=== PATIENT | female | born 1955 | race Caucasian/White ===

== ENCOUNTER 2024-11-21 13:30 | Observation (INO) | payer MEDICARE, SELFPAY ==
[2024-11-21] VITALS (11 sets, daily range): BP systolic 116–145; BP diastolic 61–97; PULSE 71–106; RESP 14–18; TEMP 36.4–38.2; O2SAT 88–97; BMI 55.7; BMI 49.4
--- NOTE | 2024-11-21 13:46 | XR_ITS ---
PROCEDURE INFORMATION: Exam: XR Pelvis Exam date and time: 11/21/2024 2:02 PM Age: 69 years old Clinical indication: Pelvic pain; Additional info: Right sided hip pain no injury TECHNIQUE: Imaging protocol: Radiologic exam of the pelvis. Views: 1 or 2 view. COMPARISON: No relevant prior studies available. 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 Moderate degenerative changes in the sacroiliac joints. There is no evidence of acute fracture.There is no evidence of malalignment or dislocation. Soft tissues: Unremarkable. IMPRESSION: There is no evidence of acute fracture.There is no evidence of malalignment or dislocation.
--- NOTE | 2024-11-21 13:46 | XR_ITS ---
PROCEDURE INFORMATION: Exam: XR Chest Exam date and time: 11/21/2024 2:02 PM Age: 69 years old Clinical indication: Cough and shortness of breath; Additional info: Cough, SOA TECHNIQUE: Imaging protocol: Radiologic exam of the chest. Views: 1 view. COMPARISON: CR XR CHEST PORTABLE 11/21/2024 2:02 PM FINDINGS: Lungs: Opacity in both bases may represent atelectasis or pneumonia.. Pleural spaces: Unremarkable. No pleural effusion. No pneumothorax. Heart/Mediastinum: Unremarkable. No cardiomegaly. Bones/joints: Unremarkable. IMPRESSION: Opacity in both bases may represent atelectasis or pneumonia..
--- NOTE | 2024-11-21 13:47 | XR_ITS ---
PROCEDURE INFORMATION: Exam: XR Right Shoulder Exam date and time: 11/21/2024 2:02 PM Age: 69 years old Clinical indication: Pain; Shoulder; Right; Additional info: Right shoulder pain TECHNIQUE: Imaging protocol: Radiologic exam of the right shoulder. Views: 2 or more views. COMPARISON: CR XR CHEST PORTABLE 11/21/2024 2:02 PM FINDINGS: Bones/joints: Mild Degenerative changes in the acromioclavicular joint and glenohumeral joint. There is no evidence of acute fracture.There is no evidence of malalignment or dislocation. Soft tissues: Normal. IMPRESSION: There is no evidence of acute fracture.There is no evidence of malalignment or dislocation.
--- NOTE | 2024-11-21 13:52 | ED_ITS ---
<Statement entered by Ana Chavez MD - 11/21/24 15:34> I was consulted by the NAMRATA, and we discussed the complexity of problems being addressed. I approved the treatment and management plan for this patient's care in the emergency department, thus performing a substantive portion of the medical decision making. Ana Chavez MD Discharge Plan Disposition Patient Disposition: Admitted Condition: Good Clinical Impressions Clinical Impression: Colitis, Sepsis Discharge ED Provider: Robert Nagy General Adult HPI <RAMÍREZ Ayala - Last Filed: 11/21/24 17:31> General Chief complaint: Nausea/Vomiting/Diarrhea Stated complaint: soa vomiting diarrhea Time Seen by Provider: 11/21/24 13:40 Mode of Arrival: Ambulatory Source of Information: Patient Limitations: No Limitations History of Present Illness HPI narrative: 69-year-old female presents to the emergency department with a 1 week history of right-sided shoulder pain, right-sided hip pain, a 2 to 3-day history of nausea vomiting diarrhea, as well as productive cough and subjective fever and chills, no recorded Tmax. Patient denies any recent sick contacts, denies any overt chest pain, denies any real shortness of breath, denies any abdominal pain, denies any urinary type symptomatology, denies melena hematochezia, hematemesis, hemoptysis. Patient is somewhat of a poor historian but does endorse a past medical history consistent with double mastectomy for right-sided breast cancer approximately 2 to 3 years ago, hypertension, T2DM, hyperlipidemia, she denies any alcohol tobacco or drug use. Initial triage vitals notable for tachycardia, SpO2 94% on room air, febrile at 100.7, triggering sepsis criteria. Onset (ago): week(s) Related Data Home Medications ?Medication ?Instructions ?Recorded ?Confirmed amlodipine 5 mg tablet 5 mg PO DAILY 11/21/2411/21 anastrozole 1 mg tablet 1 mg PO DAILY 11/21/2411/21 atorvastatin 80 mg tablet 80 mg PO HS 11/21/24 5 benzonatate 200 mg capsule 200 mg PO BID 11/21/2411/07 bupropion HCl 150 mg 24 hr tablet, 150 mg PO DAILY 11/21/24 extended release citalopram 40 mg tablet 40 mg PO DAILY 11/21/2411/07 empagliflozin 10 mg tablet 10 mg PO DAILY 11/21/24 (Jardiance) ezetimibe 10 mg tablet 10 mg PO DAILY 11/21/2411/07 irbesartan 150 mg tablet 150 mg PO DAILY 11/21/24 levocetirizine 5 mg tablet 5 mg PO DAILY 11/21/2411/07 metformin 1,000 mg tablet 1,000 mg PO BID 11/21/24 montelukast 10 mg tablet 10 mg PO DAILY 11/21/2411/07 omega-3 acid ethyl esters 1 gram 1 g PO BID 11/21/24 0 11/21/24 capsule pantoprazole 40 mg tablet,delayed 40 mg PO DAILY 11/2111/21/24 release pioglitazone 30 mg tablet 30 mg PO DAILY 11/21/2411/07 semaglutide 0.25 mg or 0.5 mg (2 1 mg SQ WEEKLY 11/21/24 mg/3 mL) subcutaneous pen injector (Ozempic) Allergies Allergy/AdvReac Type Severity Reaction Status Date / Time lisinopril AdvReac Mild Cough Verified 11/21/24 13:55 [facility] <RAMÍREZ Ayala - Last Filed: 11/21/24 17:31> [facility] Disclaimer: The information contained in this section may have been updated after the patient was seen, as this information can be updated by other users. Medical History (Updated 11/21/24 @ 18:25 by Raegan Rey RN) HX: breast cancer Diabetes type 2 GERD (gastroesophageal reflux disease) HTN (hypertension) HLD (hyperlipidemia) Surgical History (Updated 11/21/24 @ 18:25 by Raegan Rey RN) H/O bilateral mastectomy History of total right knee replacement Family History (Updated 11/21/24 @ 18:26 by Raegan Rey, PAULA) Other Breast cancer Cancer of back Heart attack Social History (Updated 11/21/24 @ 18:25 by Raegan Rey RN) Smoking Status: Never smoker alcohol intake: never current occupational status: other Travel in the last 8 weeks?: None Have you lived/traveled outside [place] in past 30 days?: No Contact w/someone who lives/traveled outside [place] past 30 days?: No Exposure to someone with infectious disease in past 14 days?: No Do you have a fever (greater than 100.4 F or 38 C)?: No Have you tested positive for COVID-19?: No Exposed to someone with COVID-19 in past 14 days?: No Do you have a sore throat?: No Do you have a cough?: No Do you have any weakness?: Yes Are you experiencing any nausea/vomitting?: No Do you have any diarrhea?: No Are you experiencing any unusual bleeding?: No Do you have any muscle aches/pain?: No Do you have any abdominal pain?: No Are you experiencing loss of taste or smell?: No <RAMÍREZ Ayala - Last Filed: 11/21/24 17:31> ROS Obtained: Yes All systems reviewed & no additional complaints except as documented Physical Exam <RAMÍREZ Ayala - Last Filed: 11/21/24 17:31> General General appearance: alert and in no apparent distress Head Head exam: atraumatic and normocephalic Eye Eye exam: Present PERRL and EOMI ENT ENT exam: Present mucous membranes moist Neck Neck exam: Present normal inspection Chest Chest inspection: Present normal inspection and symmetric chest wall rise Respiratory Respiratory exam: Present normal lung sounds bilaterally; Absent respiratory distress, wheezes or stridor Cardiovascular Cardiovascular exam: Present normal rhythm and tachycardia Abdominal Exam Abdominal exam: Present soft; Absent tenderness, guarding, rebound or rigidity Extremities Exam Extremities exam: Present normal inspection Neurological Exam Neurological exam: Present alert and oriented X3 Psychiatric Psychiatric exam: Present normal affect Skin Skin exam: Present warm and dry Medical Decision Making <RAMÍREZ Ayala - Last Filed: 11/21/24 17:31> Medical Records Medical records reviewed: Yes I reviewed the patient's medical records. Screening: Per USPSTF and CDC recommendations, given the prevalence of disease in our region, it is our hospital?s policy to screen for HIV and viral Hepatitis for all patients aged 18 and over and those with ongoing risk factors. Neo Inquiry Pt receiving controlled substance: No Neo was queried for this patient: No Vital Signs: 11/21/24 13:40 11/21/24 13:49 11/21/24 14:00 Temperature 100.7 F H Temperature Source Oral Pulse Rate 106 H 99 H Pulse Rate [Right Radial] 106 H Respiratory Rate 18 Blood Pressure 142/70 H Blood Pressure [Right Arm] 142/70 H Blood Pressure Mean Blood Pressure Mean [Right Arm] 94 Blood Pressure Source Blood Pressure Source [Right Arm] Automatic Cuff Blood Pressure Position Blood Pressure Position [Right Arm] Sitting 02 Sat by Pulse Oximetry 92 L 94 L 91 L Oxygen Delivery Method Room Air Room Air 11/21/24 14:30 11/21/24 15:00 11/21/24 16:00 Temperature Temperature Source Pulse Rate 98 H 84 86 Pulse Rate [Right Radial] Respiratory Rate 18 Blood Pressure 145/77 H 118/61 131/71 Blood Pressure [Right Arm] Blood Pressure Mean 91 Blood Pressure Mean [Right Arm] Blood Pressure Source Blood Pressure Source [Right Arm] Blood Pressure Position Blood Pressure Position [Right Arm] 02 Sat by Pulse Oximetry 93 L 92 L 95 Oxygen Delivery Method Room Air Room Air 11/21/24 17:01 11/21/24 17:19 11/21/24 17:30 Temperature 97.6 F Temperature Source Oral Pulse Rate 88 79 80 Pulse Rate [Right Radial] Respiratory Rate 18 16 Blood Pressure 118/71 118/71 126/97 H Blood Pressure [Right Arm] Blood Pressure Mean 79 Blood Pressure Mean [Right Arm] Blood Pressure Source Automatic Cuff Blood Pressure Source [Right Arm] Blood Pressure Position Supine Blood Pressure Position [Right Arm] 02 Sat by Pulse Oximetry 94 L 91 L Oxygen Delivery Method Room Air Lab Data Lab results reviewed: Yes I reviewed the patient's lab results. Lab Results 11/21/24 13:45: WBC 14.7 H, RBC 4.97, Hgb 13.4, Hct 41.5, MCV 83.5, MCH 27.0, MCHC 32.3, RDW 15.8, Plt Count 291, MPV 9.8, Neut % (Auto) 80.7 H, Lymph % (Auto) 11.5, [place]t % (Auto) 5.8, Eos % (Auto) 1.2, Baso % (Auto) 0.5, Neut # (Auto) 11.8 H, Lymph # (Auto) 1.7, [place]t # (Auto) 0.9, Eos # (Auto) 0.2, Baso # (Auto) 0.1 11/21/24 13:48: SARS-CoV-2 (PCR) Not detected, Influenza A Untype (PCR) Not detected, Influenza Type B (PCR) Not detected 11/21/24 13:57: Lactate 2.7 H 11/21/24 14:45: Sodium 133 L, Potassium 3.5, Chloride 102, Carbon Dioxide 25, Anion Gap 9.5, BUN 12, Creatinine 0.90, Estimated Creat Clear 42, Estimated GFR 62, Est GFR ( Amer) 75, Glucose 223 H, Calcium 9.4, Total Bilirubin 0.5, AST 26, ALT 17, Alkaline Phosphatase 95, Troponin I < 0.01, NT-Pro-B Natriuret Pep 147 H, Total Protein 6.8, Albumin 3.8, Globulin 3.0, Albumin/Globulin Ratio 1.3, Lipase 50 11/21/24 15:20: Urine Color Yellow, Urine Appearance Clear, Urine pH 5.5, Ur Specific Lloyd 1.025, Urine Protein 1+ A, Urine Glucose (UA) Negative, Urine Ketones Negative, Urine Blood 2+ A, Urine Nitrate Negative, Urine Bilirubin Negative, Urine Urobilinogen 0.2, Ur Leukocyte Esterase Negative, Urine RBC Occasional, Urine WBC None, Ur Squamous Epith Cells 3-5, Urine Bacteria 1+ 11/21/24 13:45 11/21/24 14:45 Orders (Tests/Meds): ED MEDICATIONS Discontinued Medications Generic Name Dose Route Start Last Admin Trade Name Freq PRN Reason Stop Dose Admin Sodium Chloride 1,000 mls @ 999 mls/hr 11/21/24 13:48 11/21/24 14:36 Sod Chlor 0.9% 1000ml Bag IV 11/21/24 14:48 999 mls/hr .Q1H1M ONE Administration Ceftriaxone Sodium 1 gm/ 50 mls @ 100 mls/hr 11/21/24 13:48 11/21/24 14:36 Sodium Chloride IV 11/21/24 14:17 100 mls/hr ONCE ONE Administration Iopamidol 85 ml 11/21/24 15:22 11/21/24 15:23 Iopamidol-370 (76%);100ml Bottle IV 11/21/24 15:23 85 ml ONCE ONE Administration Ondansetron HCl 4 mg 11/21/24 14:02 11/21/24 14:36 Ondansetron 4mg/2ml Vial IV 11/21/24 14:03 4 mg ONCE ONE Administration Sodium Chloride 10 ml 11/21/24 15:22 11/21/24 15:23 Sodium Chloride 0.9% 10ml Syr (Rad Only) IV 11/21/24 15:23 10 ml ONCE ONE Administration ORDERS Category Date Time Status CT abdomen pelvis w con Stat Cat Scan 11/21/24 13:56 Completed Pelvis XR 1-2 views [XR pelvis 1-2V] Stat Exams 11/21/24 13:46 Completed XR chest portable Stat Exams 11/21/24 13:46 Completed XR shoulder RT min 2V Stat Exams 11/21/24 13:47 Completed Complete Blood Count Auto Diff Stat Lab 11/21/24 13:45 Completed Comprehensive Metabolic Panel Stat Lab 11/21/24 14:45 Completed Lactic Acid Stat Lab 11/21/24 13:57 Completed Lipase Stat Lab 11/21/24 14:45 Completed NT Pro Brain Natriuretic Pep. Stat Lab 11/21/24 14:45 Completed Rapid PCR Covid and Flu A/B Stat Lab 11/21/24 13:48 Completed Troponin I Q3H Lab 11/21/24 17:00 Ordered Troponin I Q3H Lab 11/21/24 20:00 Ordered Troponin I Stat Lab 11/21/24 14:45 Completed Urinalysis and Microscopic Stat Lab 11/21/24 15:20 Completed Blood Culture Stat Micro 11/21/24 14:19 Received VBG [Venous Blood Gas] Stat RT 11/21/24 13:51 Ordered Medical Decision Narrative: 69-year-old female presents to the emergency department with multiple medical complaints, see HPI for detail past medical history, differential diagnose include not limited to, osteoarthritis, acute bronchitis, sepsis, viral syndrome, acute UTI, colitis, ileitis, pyelonephritis, pneumonia, cardiac arrhythmia, electrolyte disturbance among others. Discussed patient case with attending physician I discussed this patient's case with the attending physician Will obtain basic laboratory studies lactic acid level lipase level proBNP rapid PCR COVID and flu, troponin, urinalysis, pelvic x-ray, shoulder x-ray on the right, chest x-ray, CT abdomen pelvis with contrast, EKG, blood cultures, VBG, patient initially meeting sepsis criteria with fever and tachycardia, will give 1 L IV NS, 4 mg IV Zofran for nausea and start 1 g IV ceftriaxone for sepsis protocol. I along with the attending physician reviewed the patient's EKG, NSR 90 bpm UT interval within normals, QT interval within normal limits there is no STEMI. CBC is notable for mild leukocytosis of 14.7 Rapid PCR COVID and influenza are negative lactic acidosis of 2.7 CMP is notable for mild hyponatremia at 133 proBNP is minimally elevated at 147, troponin within normal limits at less than 0.01 Urinalysis notable 1+ proteinuria, 2+ hematuria, negative nitrites, negative leukocyte esterase. I reviewed the patient's right shoulder x-ray along the corresponding radiologic report there is no evidence of acute fracture no evidence of malalignment or dislocation I reviewed the patient's chest x-ray along with corresponding radiologic report, opacities in both bases may present atelectasis or pneumonia I reviewed the patient's pelvic x-ray along the corresponding radiologic report, no evidence of acute fracture there is no evidence of malalignment or dislocation. I reviewed the patient's CT abdomen pelvis with contrast along with the corresponding radiologic report, there is a low-attenuation bowel wall thickening in the right colon and transverse colon consistent with colitis, differential diagnose include infectious inflammatory etiologies, lobulated liver consistent with cirrhosis, gallstones of the gallbladder, nonspecific L5-4 changes anterior aspect the pelvis, that may be associated with umbilical hernia in this region. Discussed this patient's case with the hospitalist at approximately 4:55 p.m., he is agreement with current mission plan/treatment plan for sepsis in the setting of colitis. Discussed need for admission with the patient and family at the bedside patient and family are in agreement with current treatment plan/discharge admission plan. <Ana Chavez MD - Last Filed: 11/21/24 15:42> Vital Signs: 11/21/24 13:40 11/21/24 13:49 11/21/24 14:00 Temperature 100.7 F H Temperature Source Oral Pulse Rate 106 H 99 H Pulse Rate [Right Radial] 106 H Respiratory Rate 18 Blood Pressure 142/70 H Blood Pressure [Right Arm] 142/70 H Blood Pressure Mean Blood Pressure Mean [Right Arm] 94 Blood Pressure Source Blood Pressure Source [Right Arm] Automatic Cuff Blood Pressure Position Blood Pressure Position [Right Arm] Sitting 02 Sat by Pulse Oximetry 92 L 94 L 91 L Oxygen Delivery Method Room Air Room Air 11/21/24 14:30 11/21/24 15:00 11/21/24 16:00 Temperature Temperature Source Pulse Rate 98 H 84 86 Pulse Rate [Right Radial] Respiratory Rate 18 Blood Pressure 145/77 H 118/61 131/71 Blood Pressure [Right Arm] Blood Pressure Mean 91 Blood Pressure Mean [Right Arm] Blood Pressure Source Blood Pressure Source [Right Arm] Blood Pressure Position Blood Pressure Position [Right Arm] 02 Sat by Pulse Oximetry 93 L 92 L 95 Oxygen Delivery Method Room Air Room Air 11/21/24 17:01 11/21/24 17:19 11/21/24 17:30 Temperature 97.6 F Temperature Source Oral Pulse Rate 88 79 80 Pulse Rate [Right Radial] Respiratory Rate 18 16 Blood Pressure 118/71 118/71 126/97 H Blood Pressure [Right Arm] Blood Pressure Mean 79 Blood Pressure Mean [Right Arm] Blood Pressure Source Automatic Cuff Blood Pressure Source [Right Arm] Blood Pressure Position Supine Blood Pressure Position [Right Arm] 02 Sat by Pulse Oximetry 94 L 91 L Oxygen Delivery Method Room Air Lab Data Lab Results 11/21/24 13:45: WBC 14.7 H, RBC 4.97, Hgb 13.4, Hct 41.5, MCV 83.5, MCH 27.0, MCHC 32.3, RDW 15.8, Plt Count 291, MPV 9.8, Neut % (Auto) 80.7 H, Lymph % (Auto) 11.5, Van Zandt % (Auto) 5.8, Eos % (Auto) 1.2, Baso % (Auto) 0.5, Neut # (Auto) 11.8 H, Lymph # (Auto) 1.7, [place]andt # (Auto) 0.9, Eos # (Auto) 0.2, Baso # (Auto) 0.1 11/21/24 13:48: SARS-CoV-2 (PCR) Not detected, Influenza A Untype (PCR) Not detected, Influenza Type B (PCR) Not detected 11/21/24 13:57: Lactate 2.7 H 11/21/24 14:45: Sodium 133 L, Potassium 3.5, Chloride 102, Carbon Dioxide 25, Anion Gap 9.5, BUN 12, Creatinine 0.90, Estimated Creat Clear 42, Estimated GFR 62, Est GFR ( Amer) 75, Glucose 223 H, Calcium 9.4, Total Bilirubin 0.5, AST 26, ALT 17, Alkaline Phosphatase 95, Troponin I < 0.01, NT-Pro-B Natriuret Pep 147 H, Total Protein 6.8, Albumin 3.8, Globulin 3.0, Albumin/Globulin Ratio 1.3, Lipase 50 11/21/24 15:20: Urine Color Yellow, Urine Appearance Clear, Urine pH 5.5, Ur Specific Lloyd 1.025, Urine Protein 1+ A, Urine Glucose (UA) Negative, Urine Ketones Negative, Urine Blood 2+ A, Urine Nitrate Negative, Urine Bilirubin Negative, Urine Urobilinogen 0.2, Ur Leukocyte Esterase Negative, Urine RBC Occasional, Urine WBC None, Ur Squamous Epith Cells 3-5, Urine Bacteria 1+ Orders (Tests/Meds): ED MEDICATIONS Discontinued Medications Generic Name Dose Route Start Last Admin Trade Name Freq PRN Reason Stop Dose Admin Sodium Chloride 1,000 mls @ 999 mls/hr 11/21/24 13:48 11/21/24 14:36 Sod Chlor 0.9% 1000ml Bag IV 11/21/24 14:48 999 mls/hr .Q1H1M ONE Administration Ceftriaxone Sodium 1 gm/ 50 mls @ 100 mls/hr 11/21/24 13:48 11/21/24 14:36 Sodium Chloride IV 11/21/24 14:17 100 mls/hr ONCE ONE Administration Iopamidol 85 ml 11/21/24 15:22 11/21/24 15:23 Iopamidol-370 (76%);100ml Bottle IV 11/21/24 15:23 85 ml ONCE ONE Administration Ondansetron HCl 4 mg 11/21/24 14:02 11/21/24 14:36 Ondansetron 4mg/2ml Vial IV 11/21/24 14:03 4 mg ONCE ONE Administration Sodium Chloride 10 ml 11/21/24 15:22 11/21/24 15:23 Sodium Chloride 0.9% 10ml Syr (Rad Only) IV 11/21/24 15:23 10 ml ONCE ONE Administration ORDERS Category Date Time Status CT abdomen pelvis w con Stat Cat Scan 11/21/24 13:56 Completed Pelvis XR 1-2 views [XR pelvis 1-2V] Stat Exams 11/21/24 13:46 Completed XR chest portable Stat Exams 11/21/24 13:46 Completed XR shoulder RT min 2V Stat Exams 11/21/24 13:47 Completed Complete Blood Count Auto Diff Stat Lab 11/21/24 13:45 Completed Comprehensive Metabolic Panel Stat Lab 11/21/24 14:45 Completed Lactic Acid Stat Lab 11/21/24 13:57 Completed Lipase Stat Lab 11/21/24 14:45 Completed NT Pro Brain Natriuretic Pep. Stat Lab 11/21/24 14:45 Completed Rapid PCR Covid and Flu A/B Stat Lab 11/21/24 13:48 Completed Troponin I Q3H Lab 11/21/24 17:00 Ordered Troponin I Q3H Lab 11/21/24 20:00 Ordered Troponin I Stat Lab 11/21/24 14:45 Completed Urinalysis and Microscopic Stat Lab 11/21/24 15:20 Completed Blood Culture Stat Micro 11/21/24 14:19 Received VBG [Venous Blood Gas] Stat RT 11/21/24 13:51 Ordered <Robert Nagy MD - Last Filed: 11/21/24 18:32> Vital Signs: 11/21/24 13:40 11/21/24 13:49 11/21/24 14:00 Temperature 100.7 F H Temperature Source Oral Pulse Rate 106 H 99 H Pulse Rate [Right Radial] 106 H Respiratory Rate 18 Blood Pressure 142/70 H Blood Pressure [Right Arm] 142/70 H Blood Pressure Mean Blood Pressure Mean [Right Arm] 94 Blood Pressure Source Blood Pressure Source [Right Arm] Automatic Cuff Blood Pressure Position Blood Pressure Position [Right Arm] Sitting 02 Sat by Pulse Oximetry 92 L 94 L 91 L Oxygen Delivery Method Room Air Room Air 11/21/24 14:30 11/21/24 15:00 11/21/24 16:00 Temperature Temperature Source Pulse Rate 98 H 84 86 Pulse Rate [Right Radial] Respiratory Rate 18 Blood Pressure 145/77 H 118/61 131/71 Blood Pressure [Right Arm] Blood Pressure Mean 91 Blood Pressure Mean [Right Arm] Blood Pressure Source Blood Pressure Source [Right Arm] Blood Pressure Position Blood Pressure Position [Right Arm] 02 Sat by Pulse Oximetry 93 L 92 L 95 Oxygen Delivery Method Room Air Room Air 11/21/24 17:01 11/21/24 17:19 11/21/24 17:30 Temperature 97.6 F Temperature Source Oral Pulse Rate 88 79 80 Pulse Rate [Right Radial] Respiratory Rate 18 16 Blood Pressure 118/71 118/71 126/97 H Blood Pressure [Right Arm] Blood Pressure Mean 79 Blood Pressure Mean [Right Arm] Blood Pressure Source Automatic Cuff Blood Pressure Source [Right Arm] Blood Pressure Position Supine Blood Pressure Position [Right Arm] 02 Sat by Pulse Oximetry 94 L 91 L Oxygen Delivery Method Room Air Lab Data Lab Results 11/21/24 13:45: WBC 14.7 H, RBC 4.97, Hgb 13.4, Hct 41.5, MCV 83.5, MCH 27.0, MCHC 32.3, RDW 15.8, Plt Count 291, MPV 9.8, Neut % (Auto) 80.7 H, Lymph % (Auto) 11.5, [place]andt % (Auto) 5.8, Eos % (Auto) 1.2, Baso % (Auto) 0.5, Neut # (Auto) 11.8 H, Lymph # (Auto) 1.7, [place]t # (Auto) 0.9, Eos # (Auto) 0.2, Baso # (Auto) 0.1 11/21/24 13:48: SARS-CoV-2 (PCR) Not detected, Influenza A Untype (PCR) Not detected, Influenza Type B (PCR) Not detected 11/21/24 13:57: Lactate 2.7 H 11/21/24 14:45: Sodium 133 L, Potassium 3.5, Chloride 102, Carbon Dioxide 25, Anion Gap 9.5, BUN 12, Creatinine 0.90, Estimated Creat Clear 42, Estimated GFR 62, Est GFR ( Amer) 75, Glucose 223 H, Calcium 9.4, Total Bilirubin 0.5, AST 26, ALT 17, Alkaline Phosphatase 95, Troponin I < 0.01, NT-Pro-B Natriuret Pep 147 H, Total Protein 6.8, Albumin 3.8, Globulin 3.0, Albumin/Globulin Ratio 1.3, Lipase 50 11/21/24 15:20: Urine Color Yellow, Urine Appearance Clear, Urine pH 5.5, Ur Specific Lloyd 1.025, Urine Protein 1+ A, Urine Glucose (UA) Negative, Urine Ketones Negative, Urine Blood 2+ A, Urine Nitrate Negative, Urine Bilirubin Negative, Urine Urobilinogen 0.2, Ur Leukocyte Esterase Negative, Urine RBC Occasional, Urine WBC None, Ur Squamous Epith Cells 3-5, Urine Bacteria 1+ Orders (Tests/Meds): ED MEDICATIONS Discontinued Medications Generic Name Dose Route Start Last Admin Trade Name Freq PRN Reason Stop Dose Admin Sodium Chloride 1,000 mls @ 999 mls/hr 11/21/24 13:48 11/21/24 14:36 Sod Chlor 0.9% 1000ml Bag IV 11/21/24 14:48 999 mls/hr .Q1H1M ONE Administration Ceftriaxone Sodium 1 gm/ 50 mls @ 100 mls/hr 11/21/24 13:48 11/21/24 14:36 Sodium Chloride IV 11/21/24 14:17 100 mls/hr ONCE ONE Administration Iopamidol 85 ml 11/21/24 15:22 11/21/24 15:23 Iopamidol-370 (76%);100ml Bottle IV 11/21/24 15:23 85 ml ONCE ONE Administration Ondansetron HCl 4 mg 11/21/24 14:02 11/21/24 14:36 Ondansetron 4mg/2ml Vial IV 11/21/24 14:03 4 mg ONCE ONE Administration Sodium Chloride 10 ml 11/21/24 15:22 11/21/24 15:23 Sodium Chloride 0.9% 10ml Syr (Rad Only) IV 11/21/24 15:23 10 ml ONCE ONE Administration ORDERS Category Date Time Status CT abdomen pelvis w con Stat Cat Scan 11/21/24 13:56 Completed Pelvis XR 1-2 views [XR pelvis 1-2V] Stat Exams 11/21/24 13:46 Completed XR chest portable Stat Exams 11/21/24 13:46 Completed XR shoulder RT min 2V Stat Exams 11/21/24 13:47 Completed Complete Blood Count Auto Diff Stat Lab 11/21/24 13:45 Completed Comprehensive Metabolic Panel Stat Lab 11/21/24 14:45 Completed Lactic Acid Stat Lab 11/21/24 13:57 Completed Lipase Stat Lab 11/21/24 14:45 Completed NT Pro Brain Natriuretic Pep. Stat Lab 11/21/24 14:45 Completed Rapid PCR Covid and Flu A/B Stat Lab 11/21/24 13:48 Completed Troponin I Q3H Lab 11/21/24 17:00 Ordered Troponin I Q3H Lab 11/21/24 20:00 Ordered Troponin I Stat Lab 11/21/24 14:45 Completed Urinalysis and Microscopic Stat Lab 11/21/24 15:20 Completed Blood Culture Stat Micro 11/21/24 14:19 Received VBG [Venous Blood Gas] Stat RT 11/21/24 13:51 Ordered Medical Decision Narrative: 69-year-old female presents to the emergency department with multiple medical complaints, see HPI for detail past medical history, differential diagnose include not limited to, osteoarthritis, acute bronchitis, sepsis, viral syndrome, acute UTI, colitis, ileitis, pyelonephritis, pneumonia, cardiac arrhythmia, electrolyte disturbance among others. Discussed patient case with attending physician I discussed this patient's case with the attending physician Will obtain basic laboratory studies lactic acid level lipase level proBNP rapid PCR COVID and flu, troponin, urinalysis, pelvic x-ray, shoulder x-ray on the right, chest x-ray, CT abdomen pelvis with contrast, EKG, blood cultures, VBG, patient initially meeting sepsis criteria with fever and tachycardia, will give 1 L IV NS, 4 mg IV Zofran for nausea and start 1 g IV ceftriaxone for sepsis protocol. I along with the attending physician reviewed the patient's EKG, NSR 90 bpm UT interval within normals, QT interval within normal limits there is no STEMI. CBC is notable for mild leukocytosis of 14.7 Rapid PCR COVID and influenza are negative lactic acidosis of 2.7 CMP is notable for mild hyponatremia at 133 proBNP is minimally elevated at 147, troponin within normal limits at less than 0.01 Urinalysis notable 1+ proteinuria, 2+ hematuria, negative nitrites, negative leukocyte esterase. I reviewed the patient's right shoulder x-ray along the corresponding radiologic report there is no evidence of acute fracture no evidence of malalignment or dislocation I reviewed the patient's chest x-ray along with corresponding radiologic report, opacities in both bases may present atelectasis or pneumonia I reviewed the patient's pelvic x-ray along the corresponding radiologic report, no evidence of acute fracture there is no evidence of malalignment or dislocation. I reviewed the patient's CT abdomen pelvis with contrast along with the corresponding radiologic report, there is a low-attenuation bowel wall thickening in the right colon and transverse colon consistent with colitis, differential diagnose include infectious inflammatory etiologies, lobulated liver consistent with cirrhosis, gallstones of the gallbladder, nonspecific L5-4 changes anterior aspect the pelvis, that may be associated with umbilical hernia in this region. Discussed this patient's case with the hospitalist at approximately 4:55 p.m., he is agreement with current mission plan/treatment plan for sepsis in the setting of colitis. Discussed need for admission with the patient and family at the bedside patient and family are in agreement with current treatment plan/discharge admission plan. I was consulted by the NAMRATA, and we discussed the complexity of the problems being addressed. I approved the treatment and management plan for this patient's care in the Emergency Department, thus performing a substantive portion of the medical decision making. Robert Nagy MD Procedures <Robert Nagy MD - Last Filed: 11/21/24 18:32> Limited Ultrasound Indication:: Ultrasound-guided line placement Indication: - Difficult IV access, numerous unsuccessful initial sticks Identified structures: - Right upper extremity veins Location/access site: - Right upper extremity superficial vein Vessel patency: - Patent Direct visualization? - Yes Impression: Successful placement of 18-gauge catheter in right upper extremity superficial medial vein Images were not saved to permanent archive The study was technically adequate CPT Codes: Venipuncture: 18561-35 Age <3 yo: 35791-34 Age >3yo: 72995-46 Central line <5 yo: 97168-56 Central line >5 yo: 89137-04 This study was performed by me, and I personally interpreted all images/videos. Based on my clinical judgement, these images were adequate and did not necessitate further imaging Critical Care <Ana Chavez MD - Last Filed: 11/21/24 15:42> Critical Care Time Critical Care Time: No
[2024-11-21 13:54] LABS: Coronavirus 19, PCR Not Detected (NotDetected); Influenza A, PCR Not Detected (NotDetected); Influenza B, PCR Not Detected (NotDetected)
--- NOTE | 2024-11-21 13:56 | CT_ITS ---
PROCEDURE INFORMATION: Exam: CT Abdomen And Pelvis With Contrast Exam date and time: 11/21/2024 3:22 PM Age: 69 years old Clinical indication: Nausea and vomiting; Additional info: N/v/d, positive sirs criteria TECHNIQUE: Imaging protocol: Computed tomography of the abdomen and pelvis with contrast. Radiation optimization: All CT scans at this facility use at least one of these dose optimization techniques: automated exposure control; mA and/or kV adjustment per patient size (includes targeted exams where dose is matched to clinical indication); or iterative reconstruction. Contrast material: ISOVUE; Contrast volume: 85 ml; Contrast route: IV; COMPARISON: CR XR PELVIS 1-2V 11/21/2024 2:02 PM FINDINGS: Heart: A small pericardial effusion. There is calcification of the aortic valve annulus. There is calcification of the mitral valve annulus. Coronary arteries: Coronary artery calcifications may indicate coronary artery disease. Liver: Lobulated liver consistent with cirrhosis . Gallbladder and biliary ducts: Gallstone in the gallbladder . Pancreas: Normal. No ductal dilation. Spleen: Normal. No splenomegaly. Adrenal glands: Normal. No mass. Kidneys and ureters: 11 mm simple cyst anterior right kidney. 2.6 cm simple cyst posterior right kidney. 15 mm simple cyst medial right kidney. . No follow-up imaging recommended . There is no evidence of renal or ureteral calcifications. Stomach and bowel: Low-attenuation bowel wall thickening in the right colon and transverse colon consistent with colitis. Differential diagnosis includes infectious and inflammatory etiologies.. Appendix: No evidence of appendicitis. Intraperitoneal space: Unremarkable. No free air. No significant fluid collection. Vasculature: Unremarkable. No abdominal aortic aneurysm. Lymph nodes: Unremarkable. No enlarged lymph nodes. Urinary bladder: Unremarkable as visualized. Reproductive: Unremarkable as visualized. Bones/joints: Unremarkable. No acute fracture. Soft tissues: Umbilical hernia contains fat. Nonspecific inflammatory changes in the anterior aspect of the pelvis. (series 3, image [id number]). That may be associated with the umbilical hernia in this region. IMPRESSION: 1. Low-attenuation bowel wall thickening in the right colon and transverse colon consistent with colitis. Differential diagnosis includes infectious and inflammatory etiologies.. 2. Lobulated liver consistent with cirrhosis . 3. Gallstone in the gallbladder . 4. Nonspecific inflammatory changes in the anterior aspect of the pelvis. (series 3, image [id number] -[id number]). That may be associated with the umbilical hernia in this region. COMMENTS: Consistent with the [employer]'s Incidental Findings Committee white paper (J Am Sarah Radiol 2018): Any incidental renal lesion less than 1 cm or classified as too small to characterize, or any incidental cystic renal lesion characterized as simple-appearing, is likely benign. No follow-up imaging is recommended for these lesions per consensus recommendations based on imaging criteria.
--- NOTE | 2024-11-21 13:56 | PC.NURSE ---
Respiratory notified [facility] sent to lab
[2024-11-21 13:57] LABS: Basophils # 0.1 K/mm3 (0-0.2); Basophils % 0.5 % (0.1-2.0); Eosinophils # 0.2 Kmm3 (0.0-0.4); Eosinophils % 1.2 % (0.1-12.0); Hematocrit 41.5 % (37.0-47.0); Hemoglobin 13.4 g/dL (12.2-16.2); Immature Granulocytes # 0.05 10^3uL; Immature Granulocytes % 0.3 %; Lymphocytes # 1.7 K/mm3 (0.7-4.5); Lymphocytes % 11.5 % (10-50); Mean Corpuscular HGB Conc 32.3 g/dL (31.8-35.4); Mean Corpuscular Volume 83.5 fl (81-99); Mean Platelet Volume 9.8 fl (7.4-10.4); Monocytes # 0.9 K/mm3 (0.1-1.0); Monocytes % 5.8 % (1.7-9.3); Neutrophils # 11.8 K/mm3 (1.8-7.8); Neutrophils % 80.7 % (37.0-80.0); Nucleated Red Blood Cells # 0 10^3/uL; Nucleated Red Blood Cells % 0 %; Platelet Count 291 K/mm3 (142-424); Red Blood Count 4.97 M/mm3 (4.20-5.40); Red Cell Distribution Width 15.8 % (11.5-17.5); Red Cell Distribution Width-SD 47.8 fL; White Blood Count 14.7 K/mm3 (4.8-10.8)
--- OUTSIDE RECORDS SUMMARY | 2024-11-21 13:58 | XMS_ITS | Data Portability ---
Author Organization [facility] Address [address] [place] [address] Care Team Providers Care Handle And Vent Machine Operator Name Role Phone MIRIAM ZUNIGA Primary Care Provider SUSI Bassett Generating Station Mechanic Assessment Encounter Date Assessment Date Assessment LastModified by Organization Details LastModified Time 01/23/2023 01/23/2023 Patient presente d to office today for their Medicare Annual Wellness Visit. Education was provided on healthy nutrition, including a diet rich in fruits and vegetables, minimizing simple carbohydrates, salt, and saturated fats. Encouraged regular cardiovascular exercise such as walking at least 30 minutes daily, 5 times per week. Emphasized preventive health measures and educated pt on fall prevention and community-based lifestyle interventions to help reduce health risks and promote healthy living. A1C is elevated on exam. She is unsure what her last reading was. Discussed medications and the need to strictly take as prescribed. She does not want to change medications at this time but assures me she will take her medication daily and re-check in one month. Has not had routine labs in a couple of years. Will complete as noted. Does not want to schedule a colonoscopy at this time but agrees to cologuard. She does not need refills at this time but will call when those are due. Advised to call or return for any new or changing symptoms. [email or web address] Not available 01/23/2023 15:46:09 02/27/2023 02/27/2023 Patient given results of cologuard which was positive. Recommended that patient have a colonoscopy and she agreed. Will refer as noted. A1C shows that her diabetes management is improving. Will not make changes to medications at this time. Will order diagnositic mammogram for further evaluation of left breast lump. Will follow-up with patient when results are received. Advised to call or return for any new or changing symptoms. [email or web address] Not available 02/27/2023 14:05:46 05/29/2023 05/29/2023 Advised patient of continually elevated A1C and need to improve medication regimen. She states over the past week that she has improved and will focus on continuing to take her medication daily. Educated patient on potential side effects and outcomes of non-compliance with her medications. Will treat eczema as noted. Patient has negative POC testing at this time. Advised patient to treat symptomatically with [id number] Tylenol or Motrin and to utilize Mucinex if the congestion and cough continues. Instructed to increase fluids and return for further testing in 3 to 5 days if symptoms worsen or do not resolve. [email or web address] Not available 05/29/2023 13:51:40 02/19/2024 02/19/2024 Labs as outlined in plan. DEXA scan ordered. Colonoscopy ordered. Continue current medication regimen. If knee pain continues, call back, might consider PT or referral to [facility]. [facility]. Patient to discuss shingrix, pneumonia vaccine and flu vaccine with oncologist and let me know if she would like to proceed with these vaccinations. Follow up in 3 months for medicare wellness visit, sooner if needed. Needs urine microalbumin and POC A1C at follow up. Not available 02/19/2024 16:35:40 08/16/2024 08/16/2024 Persistent cough - If chest xr normal, will treat with cough medication. If no improvement in a few weeks, will consider PFT's. Diabetes uncontrolled @ 9.7%. Stop Januvia. Start Ozempic. Continue metformin, pioglitazone. Labs per plan below. Keep appt with oncology next month. Restart medications. BP is above goal, but patient is out of one of her medications today and has been inconsistent. Education regarding compliance to medical regimen provided. Encouraged compliance for overall health. Follow up in 3 months to recheck diabetes and for Medicare wellness visit. Not available 08/20/2024 08:35:13 Plan of Treatment Reminders Order Date Submit Date Provider Last Modified By Organization Details Last Modified Time Details Appointments None recorded. Lab lipid panel, serum 2024 025 [facility] [address] [place], [address], 5 07:08:17 CMP, serum or plasma 2024 025 [facility] ([place]), [address] [place], [address], 5 07:08:17 CBC w/ auto diff 2024 025 [facility] [address] [place], [address], 5 07:08:16 vitamin D, 25-hydroxy, total, serum 2024 025 [facility] ([place]), [address] [place], [address], 5 07:08:18 HbA1c (hemoglobin A1c), blood [address], [address], 5 14:24:22 microalbumi n/creatinin e, mass ratio, urine [address], [address], 5 14:24:21 Hepatitis C IgG Ab, qual, serum 2024 025 [facility] ([place]), [address] [place], [address], 5 07:08:18 lipid panel, serum 2023 024 [facility]), [address] [place] [address], [address], 4 12:13:57 CMP, serum or plasma 2023 024 [facility] ([place]), [address] [facility], [place], [address], 4 12:13:56 CBC w/ auto diff 2023 024 [facility] ([place]), [address] [facility], [place], [address], 4 12:13:56 vitamin D, 25-hydroxy, total, serum 2023 024 [facility] ([place]), [address] [facility], [place], [address], 4 12:13:57 HbA1c (hemoglobin A1c), blood [address], [address], 4 16:18:27 rapid SARS CoV 2 Ag, QL, IA, upper respiratory specimen [address], [address], 3 13:49:07 rapid flu (A+B) [address], [address], 3 13:49:11 HbA1c (hemoglobin A1c), blood [address], [address], 3 13:41:50 HbA1c (hemoglobin A1c), blood [address], [place], [address], 3 13:51:15 lipid panel, serum 2022 023 [facility], [address], [place], [address], 3 05:36:06 CMP, serum or plasma 2022 023 [facility], [address], [place], [address], 3 05:36:07 CBC w/ auto diff 2022 023 [facility], [address], [place], [address], 3 05:36:07 vitamin D, 25-hydroxy, total, serum 2022 023 [facility], [address], [place], [address], 3 05:36:08 noninvasive colorectal cancer DNA + occult blood screening, QL, stool 2022 023 [facility] ([facility] Orders Only), [address], [address], [place], [address], 3 07:21:23 TSH, serum or plasma 2022 023 [facility], [address], [place], [address], 3 05:36:08 HbA1c (hemoglobin A1c), blood [address], [address] [place] [address], [address], 3 15:28:40 Referral None recorded. Procedures colonoscopy screening (PROC) - + cologuard last year 2023 024 teresa Garrison MD, [address], [place], [address], 4 15:47:17 colonoscopy screening (PROC) 2022 023 teresa Garrison MD, [address], [place], [address], 4 14:52:02 Surgeries None recorded. Imaging XR, chest, 2 view 2024 025 [facility], [address] [place] [address], [address], 5 16:18:55 DEXA [address] [facility], [address], [place], [address], 4 15:45:57 MAMMO, diagnostic, unilateral - Left breast lump [address] [facility], [address], [place], [address], 3 08:51:53 bone density - first available [address] [facility], [address], [place], [address], 3 14:09:39 Medication Orders atorvastati n 80 mg tablet 2024 025 [facility], [address] [place] [address], [address], 5 13:35:49 Zetia 10 mg tablet 2024 025 [facility], [address] [place] [address], [address], 13:35:50 Lovaza 1 gram capsule 2024 025 [facility], [address] [place] [address], [address], 13:35:46 Zetia 10 mg tablet 2024 025 [facility], [address] [place] [address], [address], 14:58:37 levocetiriz ine 5 mg tablet 2024 025 [facility], [address] [place] [address], [address], 13:35:51 montelukast 10 mg tablet 2024 025 [facility], [address] [place] [address], [address], 13:35:48 amlodipine 5 mg tablet 2024 025 [facility], [address] [place] [address], [address], 13:35:39 irbesartan 150 mg tablet 2024 025 [facility], [address] [place] [address], [address], 13:35:40 benzonatate 200 mg capsule 2024 025 [facility], [address] [place] [address], [address], 13:35:44 bupropion HCl XL 150 mg 24 hr tablet, extended release 2024 025 [facility], [address] [place] [address], [address], 5 13:35:52 pantoprazol e 40 mg tablet,kalyani yed release 2024 025 [facility], [address] [place] [address], [address], 5 13:35:42 metformin 1,000 mg tablet 2024 025 [facility], [address] [place] [address], [address], 5 13:35:47 pioglitazon e 30 mg tablet 2024 025 [facility], [address] [place] [address], [address], 5 13:35:45 Ozempic 0.25 mg or 0.5 mg (2 mg/1.5 mL) subcutaneou s pen injector 2024 025 [facility], [address] [place] [address], [address], 5 13:35:41 citalopram 40 mg tablet 2024 025 [facility], [address] [place] [address], [address], 5 13:35:45 levocetiriz ine 5 mg tablet 2023 024 [facility], [address] [place] [address], [address], 5 15:40:38 montelukast 10 mg tablet 2023 024 [facility], [address] [place] [address], [address], 4 12:22:56 lovastatin 40 mg tablet 2023 024 [facility], [address] [place] [address], [address], 4 09:14:37 amlodipine 5 mg tablet 2023 024 [facility], [address] [place] [address], [address], 4 12:22:58 irbesartan 150 mg tablet 2023 024 [facility], [address] [place] [address], [address], 4 11:06:08 bupropion HCl XL 150 mg 24 hr tablet, extended release 2023 [facility], [address] [place] [address], [address], 4 11:01:13 pantoprazol e 40 mg tablet,kalyani yed release 2023 024 [facility], [address] [place] [address], [address], 4 09:14:34 Januvia 100 mg tablet 2023 025 [facility], [address] [place] [address], [address], 5 14:45:59 metformin 1,000 mg tablet 2023 024 [facility], [address] [place] [address], [address], 4 11:06:10 pioglitazon e 30 mg tablet 2023 024 [facility], [address] [place] [address], [address], 4 11:06:09 citalopram 40 mg tablet 2023 024 [facility], [address] [place] [address], [address], 4 12:22:55 triamcinolo ne acetonide 0.1 % topical cream 2022 024 [facility], [address] [place] [address], [address], 4 16:24:52 irbesartan 150 mg tablet 2022 023 [facility], [address] [place] [address], [address], 4 13:25:32 pioglitazon e 30 mg tablet 2022 023 [facility], [address] [place] [address], [address], 4 13:25:31 Patient TargetsNo targets recorded. Patient Instructions Encounter Date Encounter Id Patient Instructions Last Modified By Organization Details Last Modified Time 01/23/2023 [id number] weight managemen t education Not available 01/23/2023 15:28:40 02/19/2024 [id number] body mass index: care instructions Not available 02/19/2024 16:35:55 learning about healthy weight Not available 02/19/2024 16:35:56 08/16/2024 [id number] type 2 diabetes: care instructions Not available 08/16/2024 14:24:21 Reason for Referral None Reported. Results Created Date Observation Date Name Description Value Unit Range Abnormal Flag Note LastModifiedBy Organization Detail LastModifiedTime 01/24/20 23 01/24/2023 LIPID PANEL WITH REFLE X TO DIREC T LDL cholesterol, total 282 mg/dL <200 high Not Available [facility] [place] [address] [facility], [place], [address], 01/24/2023 05:36:06 01/24/20 23 01/24/2023 LIPID PANEL WITH REFLE X TO DIREC T LDL HDL cholesterol 58 mg/dL > or = 50 normal Not Available [facility] [address] [facility] [place], [address], 01/24/2023 05:36:06 01/24/20 23 01/24/2023 LIPID PANEL WITH REFLE X TO DIREC T LDL triglyceride s 239 mg/dL <150 high If a non-f astin g speci men was colle cted, consi jose luis repea t trigl yceri de testi ng on a fasti ng speci men if clini katy indic ated. Behzad mitchell et al. J. of Clin. Lipid ol. 2015; 9:129 -169. Not Available [facility] [place] [facility] [address] [facility], [place], [address], 01/24/2023 05:36:06 01/24/20 23 01/24/2023 LIPID PANEL WITH REFLE X TO DIREC T LDL LDL-choleste rol 180 mg/dL _(jesus c) high Refer ence range : <100 Felipe able range <100 mg/dL for prima ry preve ntion ; <70 mg/dL for patie nts with CHD or diabe tic patie nts with > or = 2 CHD risk facto rs. LDL-C is now calcu lated using the Lizeth n-Hop kins calcu melissa n, which is a valid ated novel metho d provi ding tin r accur acy than the Fried diana equat ion in the estim ation of LDL-C . Lizeth barrios SS et al. JENNIE. 2013; 310(1 9): 2061- 2068 (http ://ed milenaati on.Qu Clarissa Savveo. com/f aq/FA Q164) Not Available [facility] [address] [facility], [place], [address], 01/24/2023 05:36:06 01/24/20 23 01/24/2023 LIPID PANEL WITH REFLE X TO DIREC T LDL chol/HDLC ratio 4.9 (calc ) <5.0 normal Not Available [facility] [address] [place], [address], 01/24/2023 05:36:06 01/24/20 23 01/24/2023 LIPID PANEL WITH REFLE X TO DIREC T LDL non HDL cholesterol 224 mg/dL _(jesus c) <130 high Non-H DL level > or = 220 is very high and may indic ate [facility] famil ial hyper darron stero lemia (FH). Clini jesus asses sment and measu remen t of blood lipid level s shoul d be consi dered for all first -degr ee relat sarai of patie nts with an FH diagn osis. For patie nts with diabe michelle plus 1 major ASCVD risk facto r, treat ing to a non-H DL-C goal of <100 mg/dL (LDL- C of <70 mg/dL ) is consi dered a thera peuti c optio n. Not Available [facility] [address] [place], [address], 01/24/2023 05:36:06 01/24/20 23 01/24/2023 COMPR EHENS TONE METAB OLIC PANEL glucose 289 mg/dL 65-139 high Non-f astin g refer ence inter japser Not Available [facility] [address] [place], [address], 01/24/2023 05:36:07 01/24/20 23 01/24/2023 COMPR EHENS TONE METAB OLIC PANEL urea nitrogen (BUN) 17 mg/dL 7-25 normal Not Available [facility] [address] [place], [address], 01/24/2023 05:36:07 01/24/20 23 01/24/2023 COMPR EHENS TONE METAB OLIC PANEL creatinine 1.02 mg/dL 0.50-1 .05 normal Not Available [facility] [address] [place], [address], 01/24/2023 05:36:07 01/24/20 23 01/24/2023 COMPR EHENS TONE METAB OLIC PANEL eGFR 60 mL/mi n/1.7 3m2 > or = 60 normal Not Available [facility] [facility] [address] [facility] [place], [address], 01/24/2023 05:36:07 01/24/20 23 01/24/2023 COMPR EHENS TONE METAB OLIC PANEL BUN/creatini ne ratio SEE NOTE: (calc ) 6-22 Not Repor tyrel: BUN and Creat inine are withi n refer ence range . Not Available [employer] [facility] [address] [place], [address], 01/24/2023 05:36:07 01/24/20 23 01/24/2023 COMPR EHENS TONE METAB OLIC PANEL sodium 139 mmol/ L 135-14 6 normal Not Available [facility] [facility] [address] [facility] [place], [address], 01/24/2023 05:36:07 01/24/20 23 01/24/2023 COMPR EHENS TONE METAB OLIC PANEL potassium 4.2 mmol/ L 3.5-5. 3 normal Not Available [facility] [facility] [address] [facility] [place], [address], 01/24/2023 05:36:07 01/24/20 23 01/24/2023 COMPR EHENS TONE METAB OLIC PANEL chloride 97 mmol/ L 98-110 low Not Available [facility] [address] [facility] [place], [address], 01/24/2023 05:36:07 01/24/20 23 01/24/2023 COMPR EHENS TONE METAB OLIC PANEL carbon dioxide 29 mmol/ L 20-32 normal Not Available [facility] [address] [place], [address], 01/24/2023 05:36:07 01/24/20 23 01/24/2023 COMPR EHENS TONE METAB OLIC PANEL calcium 10.0 mg/dL 8.6-10 .4 normal Not Available [facility] [address] [facility] [place], [address], 01/24/2023 05:36:07 01/24/20 23 01/24/2023 COMPR EHENS TONE METAB OLIC PANEL protein, total 7.7 g/dL 6.1-8. 1 normal Not Available [facility] [address] [facility] [place] [place], [address], 01/24/2023 05:36:07 01/24/20 23 01/24/2023 COMPR EHENS TONE METAB OLIC PANEL albumin 4.2 g/dL 3.6-5. 1 normal Not Available [facility] [address] [facility] [place], [address], 01/24/2023 05:36:07 01/24/20 23 01/24/2023 COMPR EHENS TONE METAB OLIC PANEL globulin 3.5 g/dL_ (calc ) 1.9-3. 7 normal Not Available [facility] [address] [facility] [place], [address], 01/24/2023 05:36:07 01/24/20 23 01/24/2023 COMPR EHENS TONE METAB OLIC PANEL albumin/glob ulin ratio 1.2 (calc ) 1.0-2. 5 normal Not Available [facility] [address] [place], [address], 01/24/2023 05:36:07 01/24/20 23 01/24/2023 COMPR EHENS TONE METAB OLIC PANEL bilirubin, total 0.5 mg/dL 0.2-1. 2 normal Not Available [facility] [address] [place], [address], 01/24/2023 05:36:07 01/24/20 23 01/24/2023 COMPR EHENS TONE METAB OLIC PANEL alkaline phosphatase 96 U/L 37-153 normal Not Available [facility] [address] [place], [address], 01/24/2023 05:36:07 01/24/20 23 01/24/2023 COMPR EHENS TONE METAB OLIC PANEL AST 11 U/L 10-35 normal Not Available [facility] [employer] [facility] [address] [place], [address], 01/24/2023 05:36:07 01/24/20 23 01/24/2023 COMPR EHENS TONE METAB OLIC PANEL ALT 10 U/L 6-29 normal Not Available [facility] [facility] [address] [place], [address], 01/24/2023 05:36:07 01/24/20 23 01/24/2023 CBC (INCL UDES DIFF/ PLT) white blood cell count 15.6 thous and/u L 3.8-10 .8 high Not Available [employer] [facility] [address] [place], [address], 01/24/2023 05:47:08 01/24/20 23 01/24/2023 CBC (INCL UDES DIFF/ PLT) red blood cell count 5.00 lencho on/uL 3.80-5 .10 normal Not Available [facility] [facility] [address] [place], [address], 01/24/2023 05:47:08 01/24/20 23 01/24/2023 CBC (INCL UDES DIFF/ PLT) hemoglobin 13.9 g/dL 11.7-1 5.5 normal Not Available [facility] [facility] [address], [place], [address], 01/24/2023 05:47:08 01/24/20 23 01/24/2023 CBC (INCL UDES DIFF/ PLT) hematocrit 42.7 % 35.0-4 5.0 normal Not Available [facility] [place] [address] [place], [address], 01/24/2023 05:47:08 01/24/20 23 01/24/2023 CBC (INCL UDES DIFF/ PLT) MCV 85.4 fL 80.0-1 00.0 normal Not Available [facility] [place] [facility] [address] [place], [address], 01/24/2023 05:47:08 01/24/20 23 01/24/2023 CBC (INCL UDES DIFF/ PLT) MCH 27.8 pg 27.0-3 3.0 normal Not Available [facility] [place] [facility] [address] [place], [address], 01/24/2023 05:47:08 01/24/20 23 01/24/2023 CBC (INCL UDES DIFF/ PLT) MCHC 32.6 g/dL 32.0-3 6.0 normal Not Available [facility] [address] [place], [address], 01/24/2023 05:47:08 01/24/20 23 01/24/2023 CBC (INCL UDES DIFF/ PLT) RDW 14.4 % 11.0-1 5.0 normal Not Available [facility] [address] [place], [address], 01/24/2023 05:47:08 01/24/20 23 01/24/2023 CBC (INCL UDES DIFF/ PLT) platelet count 399 thous and/u L 140-40 0 normal Not Available [facility] [place] [facility] [address] [place], [address], 01/24/2023 05:47:08 01/24/20 23 01/24/2023 CBC (INCL UDES DIFF/ PLT) MPV 9.6 fL 7.5-12 .5 normal Not Available [facility] [place] [facility] [address], [place], [address], 01/24/2023 05:47:08 01/24/20 23 01/24/2023 CBC (INCL UDES DIFF/ PLT) absolute neutrophils 78448 cells /uL 1500-7 800 high Not Available [facility] [place] [facility] [address], [place], [address], 01/24/2023 05:47:08 01/24/20 23 01/24/2023 CBC (INCL UDES DIFF/ PLT) absolute lymphocytes 3479 cells /uL 850-39 00 normal Not Available [facility] [place] [facility] [address], [place], [address], 01/24/2023 05:47:08 01/24/20 23 01/24/2023 CBC (INCL UDES DIFF/ PLT) absolute monocytes 936 cells /uL 200-95 0 normal Not Available [facility] [place] [facility] [address], [place], [address], 01/24/2023 05:47:08 01/24/20 23 01/24/2023 CBC (INCL UDES DIFF/ PLT) absolute eosinophils 265 cells /uL 15-500 normal Not Available [facility] [place] [facility] [address], [place], [address], 01/24/2023 05:47:08 01/24/20 23 01/24/2023 CBC (INCL UDES DIFF/ PLT) absolute basophils 94 cells /uL 0-200 normal Not Available [facility] [place] [facility] [address], [place], [address], 01/24/2023 05:47:08 08/17/01/24/2023 CBC (INCL UDES DIFF/ PLT) neutrophils 69.4 % normal Not Available [facility] [place] [facility] [address] [place], [address], 01/24/2023 05:47:08 01/24/20 23 01/24/2023 CBC (INCL UDES DIFF/ PLT) lymphocytes 22.3 % normal Not Available [facility] [place] [facility] [address] [place], [address], 01/24/2023 05:47:08 01/24/20 23 01/24/2023 CBC (INCL UDES DIFF/ PLT) monocytes 6.0 % normal Not Available [facility] [place] [facility] [address] [place], [address], 01/24/2023 05:47:08 01/24/20 23 01/24/2023 CBC (INCL UDES DIFF/ PLT) eosinophils 1.7 % normal Not Available [facility] [place] [facility] [address] [place], [address], 01/24/2023 05:47:08 01/24/2001/24/2023 CBC (INCL UDES DIFF/ PLT) basophils 0.6 % normal Not Available [facility] [place] [facility] [address] [place], [address], 01/24/2023 05:47:08 01/24/2001/24/2023 TSH W/REF CHRISTIANO TO FT4 TSH w/reflex to FT4 1.83 mIU/L 0.40-4 .50 normal Not Available [facility] [place] [facility] [address] [place], [address], 01/24/2023 07:33:31 01/24/2001/24/2023 VITAM IN D,25- OH,TO JOSE,I A vitamin D,25-oh,tota l,ia 46 NG/mL 30-100 normal Vitam in D Statu s 25-OH Vitam in D: Defic iency : <20 ng/mL Insuf ficie ncy: 20 - 29 ng/mL Optim al: > or = 30 ng/mL For 25-OH Vitam in D testi ng on patie nts on D2-jamison pplem entat ion and patie nts for whom quant itati on of D2 and D3 fract ions is requi red, the [facility] e[facility](TM ) 25-OH VIT D, (D2,D 3), LC/MS /MS is recom nathan d: order code 94896 (abbey ents >2yrs ). See Note 1 Note 1 For addit ional infor lionel barrett e refer to http: //[facility] shazia Plata stDia gnost ics.c om/fa q/FAQ 199 (This link is being provi ded for infor brooklyn healy/ educgale epperson purpo ses only. ) Not Available [facility] [place] [facility] [address] [place] [address], [place], [address], 01/24/2023 07:33:31 01/24/20 23 01/23/2023 HbA1c (hemo globi n A1c), blood HbA1c 11.9 Not Available [address], [address], 01/23/2023 14:49:32 02/19/20 23 02/18/2023 nonin vasiv e color ectal cance r DNA + occul t blood scree alvarado, QL, stool fit-DNA positi ve Not Available [employer] (Cologuard Orders Only) [address] [address], [place], [address], 02/27/2023 06:14:13 02/28/20 23 02/27/2023 HbA1c (hemo globi n A1c), blood HbA1c 10.2 Not Available [address], [address], 02/27/2023 13:44:29 05/29/20 23 05/29/2023 rapid flu (A+B) Flu A negati ve Not Available [address], [address], 05/29/2023 13:07:36 05/29/20 23 05/29/2023 rapid flu (A+B) Flu B negati ve Not Available [address], [address], 05/29/2023 13:07:36 05/29/20 23 05/29/2023 rapid SARS CoV 2 Ag, QL, IA, upper respi rator y speci men SARS CoV Ag negati ve Not Available [address], [address], 05/29/2023 13:07:28 05/29/20 23 05/29/2023 HbA1c (hemo globi n A1c), blood HbA1c 10.8 Not Available [address], [address], 05/29/2023 13:07:00 02/19/20 24 02/21/2024 CBC WITH DIFFE RENTI AL/PL ATELE T WBC 12.8 x10e3 /uL 3.4-10 .8 above high normal Not Available [facility] ([facility]) [address] [facility], [place], [address], 02/21/2024 12:13:56 02/19/20 24 02/21/2024 CBC WITH DIFFE RENTI AL/PL ATELE T RBC 4.75 x10e6 /uL 3.77-5 .28 normal Not Available [facility] ([facility]) [address] [facility], [place], [address], 02/21/2024 12:13:56 02/19/20 24 02/21/2024 CBC WITH DIFFE RENTI AL/PL ATELE T hemoglobin 12.3 g/dL 11.1-1 5.9 normal Not Available [facility] ([facility]) [address] [place], [address], 02/21/2024 12:13:56 02/19/2002/21/2024 CBC WITH DIFFE RENTI AL/PL ATELE T hematocrit 39.4 % 34.0-4 6.6 normal Not Available [facility] ([facility]) [address] [facility], [place], [address], 02/21/2024 12:13:56 02/19/20 24 02/21/2024 CBC WITH DIFFE RENTI AL/PL ATELE T MCV 83 fL 79-97 normal Not Available [facility] ([facility]) [address] [facility], [place], [address], 02/21/2024 12:13:56 02/19/20 24 02/21/2024 CBC WITH DIFFE RENTI AL/PL ATELE T MCH 25.9 pg 26.6-3 3.0 below low normal Not Available [facility] ([facility]) [address] [place], [address], 02/21/2024 12:13:56 02/19/20 24 02/21/2024 CBC WITH DIFFE RENTI AL/PL ATELE T MCHC 31.2 g/dL 31.5-3 5.7 below low normal Not Available [facility] ([facility]) [address] [place], [address], 02/21/2024 12:13:56 02/19/20 24 02/21/2024 CBC WITH DIFFE RENTI AL/PL ATELE T RDW 14.3 % 11.7-1 5.4 Not Available [facility] ([facility]) [address] [place], [address], 02/21/2024 12:13:56 02/19/20 24 02/21/2024 CBC WITH DIFFE RENTI AL/PL ATELE T platelets 345 x10e3 /uL 150-45 0 normal Not Available [facility] ([facility]) [address] [facility], [place], [address], 02/21/2024 12:13:56 02/19/20 24 02/21/2024 CBC WITH DIFFE RENTI AL/PL ATELE T neutrophils 63 % not estab. normal Not Available [facility] ([facility]) [address] [facility], [place], [address], 02/21/2024 12:13:56 02/19/20 24 02/21/2024 CBC WITH DIFFE RENTI AL/PL ATELE T lymphs 25 % not estab. normal Not Available [facility] ([facility]) [address] [facility], [place], [address], 02/21/2024 12:13:56 02/19/20 24 02/21/2024 CBC WITH DIFFE RENTI AL/PL ATELE T monocytes 7 % not estab. normal Not Available [facility] ([facility]) [address] [facility], [place], [address], 02/21/2024 12:13:56 02/19/20 24 02/21/2024 CBC WITH DIFFE RENTI AL/PL ATELE T eos 3 % not estab. normal Not Available [facility] ([facility]) [address] [place], [address], 02/21/2024 12:13:56 02/19/20 24 02/21/2024 CBC WITH DIFFE RENTI AL/PL ATELE T basos 1 % not estab. normal Not Available [facility] ([facility]) [address] [place], [address], 02/21/2024 12:13:56 02/19/20 24 02/21/2024 CBC WITH DIFFE RENTI AL/PL ATELE T immature cells ASSOCIATE PROFESSOR OF KINESIOLOGY Not Available [facility] ([facility]) [address] [place], [address], 02/21/2024 12:13:56 02/19/20 24 02/21/2024 CBC WITH DIFFE RENTI AL/PL ATELE T neutrophils (absolute) 8.1 x10e3 /uL 1.4-7. 0 above high normal Not Available [facility] ([facility]) [address] [place], [address], 02/21/2024 12:13:56 02/19/20 24 02/21/2024 CBC WITH DIFFE RENTI AL/PL ATELE T lymphs (absolute) 3.2 x10e3 /uL 0.7-3. 1 above high normal Not Available [facility] ([facility]) [address] [place], [address], 02/21/2024 12:13:56 02/19/20 24 02/21/2024 CBC WITH DIFFE RENTI AL/PL ATELE T monocytes(ab solute) 0.9 x10e3 /uL 0.1-0. 9 normal Not Available [facility] ([facility]) [address] [place], [address], 02/21/2024 12:13:56 02/19/20 24 02/21/2024 CBC WITH DIFFE RENTI AL/PL ATELE T eos (absolute) 0.4 x10e3 /uL 0.0-0. 4 normal Not Available [facility] ([facility]) [address] [place], [address], 02/21/2024 12:13:56 02/19/20 24 02/21/2024 CBC WITH DIFFE RENTI AL/PL ATELE T baso (absolute) 0.1 x10e3 /uL 0.0-0. 2 normal Not Available [facility] ([facility]) [address] [place], [address], 02/21/2024 12:13:56 02/19/20 24 02/21/2024 CBC WITH DIFFE RENTI AL/PL ATELE T immature granulocytes 1 % not estab. Not Available [facility] ([facility]) [address] [facility], [place], [address], 02/21/2024 12:13:56 02/19/20 24 02/21/2024 CBC WITH DIFFE RENTI AL/PL ATELE T immature grans (abs) 0.1 x10e3 /uL 0.0-0. 1 Not Available [facility] ([facility]) [address] [facility], [place], [address], 02/21/2024 12:13:56 02/19/20 24 02/21/2024 CBC WITH DIFFE RENTI AL/PL ATELE T NRBC ASSOCIATE PROFESSOR OF KINESIOLOGY Not Available [facility] ([facility]) [address] [facility], [place], [address], 02/21/2024 12:13:56 02/19/20 24 02/21/2024 CBC WITH DIFFE RENTI AL/PL ATELE T hematology comments: ASSOCIATE PROFESSOR OF KINESIOLOGY Not Available [facility] ([facility]) [address] [facility], [place], [address], 02/21/2024 12:13:56 02/19/20 24 02/21/2024 COMP. METAB OLIC PANEL (14) glucose 157 mg/dL 70-99 above high normal Not Available [facility] ([facility]) [address] [facility], [place], [address], 02/21/2024 12:13:56 02/19/20 24 02/21/2024 COMP. METAB OLIC PANEL (14) BUN 13 mg/dL 8-27 normal Not Available [facility] ([facility]) [address] [facility], [place], [address], 02/21/2024 12:13:56 02/19/20 24 02/21/2024 COMP. METAB OLIC PANEL (14) creatinine 0.84 mg/dL 0.57-1 .00 normal Not Available [facility] ([facility]) [address] [facility], [place], [address], 02/21/2024 12:13:56 02/19/20 24 02/21/2024 COMP. METAB OLIC PANEL (14) eGFR 76 mL/mi n/1.7 3 >59 normal Not Available [facility] ([facility]) [address] [facility], [place], [address], 02/21/2024 12:13:56 02/19/20 24 02/21/2024 COMP. METAB OLIC PANEL (14) BUN/creatini ne ratio 15 12-28 normal Not Available [facility] ([facility]) [address] [facility], [place], [address], 02/21/2024 12:13:56 02/19/20 24 02/21/2024 COMP. METAB OLIC PANEL (14) sodium 140 mmol/ L 134-14 4 normal Not Available [facility] ([facility]) [address] [facility], [place], [address], 02/21/2024 12:13:56 02/19/20 24 02/21/2024 COMP. METAB OLIC PANEL (14) potassium 4.5 mmol/ L 3.5-5. 2 normal Not Available [facility] ([facility]) [address] [facility], [place], [address], 02/21/2024 12:13:56 02/19/20 24 02/21/2024 COMP. METAB OLIC PANEL (14) chloride 100 mmol/ L 96-106 normal Not Available [facility] ([facility]) [address] [facility], [place], [address], 02/21/2024 12:13:56 02/19/20 24 02/21/2024 COMP. METAB OLIC PANEL (14) carbon dioxide, total 18 mmol/ L 20-29 below low normal Not Available [facility] ([facility]) [address] [facility], [place], [address], 02/21/2024 12:13:56 02/19/20 24 02/21/2024 COMP. METAB OLIC PANEL (14) calcium 10.0 mg/dL 8.7-10 .3 normal Not Available [facility] ([facility]) [address] [place], [address], 02/21/2024 12:13:56 02/19/20 24 02/21/2024 COMP. METAB OLIC PANEL (14) protein, total 6.9 g/dL 6.0-8. 5 normal Not Available [facility] ([facility]) [address], [place], [address], 02/21/2024 12:13:56 02/19/2002/21/2024 COMP. METAB OLIC PANEL (14) albumin 4.3 g/dL 3.9-4. 9 normal Not Available [facility] ([facility]) [address] [place], [address], 02/21/2024 12:13:56 02/19/20 24 02/21/2024 COMP. METAB OLIC PANEL (14) globulin, total 2.6 g/dL 1.5-4. 5 Not Available [facility] ([facility]) [address] [place], [address], 02/21/2024 12:13:56 02/19/20 24 02/21/2024 COMP. METAB OLIC PANEL (14) bilirubin, total <0.2 mg/dL 0.0-1. 2 Not Available [facility] ([facility]) [address] [place], [address], 02/21/2024 12:13:56 02/19/2002/21/2024 COMP. METAB OLIC PANEL (14) alkaline phosphatase 94 IU/L 44-121 normal Not Available [facility] ([facility]) [address], [place], [address], 02/21/2024 12:13:56 02/19/20 24 02/21/2024 COMP. METAB OLIC PANEL (14) AST (SGOT) 11 IU/L 0-40 normal Not Available [facility] ([facility]) [address] [facility] [place], [address], 02/21/2024 12:13:56 02/19/20 24 02/21/2024 COMP. METAB OLIC PANEL (14) ALT (SGPT) 7 IU/L 0-32 normal Not Available [facility] ([facility]) [address] [facility] [place], [address], 02/21/2024 12:13:56 02/19/20 24 02/21/2024 LIPID PANEL cholesterol, total 270 mg/dL 100-19 9 above high normal Not Available [facility] ([facility]) [address] [facility] [place], [address], 02/21/2024 12:13:57 02/19/20 24 02/21/2024 LIPID PANEL triglyceride s 313 mg/dL 0-149 above high normal Not Available [facility] ([facility]) [address] [facility] [place], [address], 02/21/2024 12:13:57 02/19/20 24 02/21/2024 LIPID PANEL HDL cholesterol 50 mg/dL >39 normal Not Available [facility] ([facility]) [address] [facility] [place], [address], 02/21/2024 12:13:57 02/19/20 24 02/21/2024 LIPID PANEL VLDL cholesterol jesus 59 mg/dL 5-40 above high normal Not Available [facility] ([facility]) [address] [facility] [place], [address], 02/21/2024 12:13:57 02/19/20 24 02/21/2024 LIPID PANEL LDL chol calc ([facility]) 161 mg/dL 0-99 above high normal Not Available [facility] ([facility]) [address] [place], [address], 02/21/2024 12:13:57 02/19/20 24 02/21/2024 LIPID PANEL LDL calc comment: ASSOCIATE PROFESSOR OF KINESIOLOGY Not Available [facility] ([facility]) [address] [facility], [place], [address], 02/21/2024 12:13:57 02/19/20 24 02/21/2024 VITAM IN D, 25-HY DROXY vitamin D, 25-hydroxy 48.7 NG/mL 30.0-1 00.0 Vitam in D defic iency has been defin ed by the Insti tute of Medic ine and an Endoc rine Socie ty pract ice guide line as a level of serum 25-OH vitam in D less than 20 ng/mL (1,2) . The Endoc rine Socie ty went on to furth er defin e vitam in D insuf ficie ncy as a level betwe en 21 and 29 ng/mL (2). 1. IOM (Inst itute of Medic ine). 2009. Dieta ry refer ence intak es for calci um and D. Devin tellez DC: The [facility] Press . 2. Lita rose MF, Kimberly stokes [place], Latoya off-F irma i CLEMENTS, et al. Evalu ation , treat ment, and preve ntion of vitam in D defic iency : an Endoc rine Socie ty clini jesus pract ice guide line. JCEM. 2010; 96(7) :1911 -30. Not Available [facility] ([facility]) [address] [facility], [place], [address], 02/21/2024 12:13:57 02/19/20 24 02/19/2024 HbA1c (hemo globi n A1c), blood HbA1c 8.7 Not Available [address], [address], 02/19/2024 15:49:31 08/17/19 25 08/17/2024 CBC WITH DIFFE RENTI AL/PL ATELE T WBC 12.3 x10e3 /uL 3.4-10 .8 above high normal Not Available [facility] ([facility]) [address] [place], [address], 08/17/2024 07:08:16 08/17/19 25 08/17/2024 CBC WITH DIFFE RENTI AL/PL ATELE T RBC 4.95 x10e6 /uL 3.77-5 .28 normal Not Available [facility] ([facility]) [address] [place], [address], 08/17/2024 07:08:16 08/17/1908/17/2024 CBC WITH DIFFE RENTI AL/PL ATELE T hemoglobin 13.1 g/dL 11.1-1 5.9 normal Not Available [facility] ([facility]) [address] [place], [address], 08/17/2024 07:08:16 08/17/1908/17/2024 CBC WITH DIFFE RENTI AL/PL ATELE T hematocrit 41.0 % 34.0-4 6.6 normal Not Available [facility] ([facility]) [address] [place], [address], 08/17/2024 07:08:16 08/17/19 25 08/17/2024 CBC WITH DIFFE RENTI AL/PL ATELE T MCV 83 fL 79-97 normal Not Available [facility] ([facility]) [address] [place], [address], 08/17/2024 07:08:16 08/17/1908/17/2024 CBC WITH DIFFE RENTI AL/PL ATELE T MCH 26.5 pg 26.6-3 3.0 below low normal Not Available [facility] ([facility]) [address] [place], [address], 08/17/2024 07:08:16 08/17/19 25 08/17/2024 CBC WITH DIFFE RENTI AL/PL ATELE T MCHC 32.0 g/dL 31.5-3 5.7 normal Not Available [facility] ([facility]) [address] [facility], [place], [address], 08/17/2024 07:08:16 08/17/19 25 08/17/2024 CBC WITH DIFFE RENTI AL/PL ATELE T RDW 14.2 % 11.7-1 5.4 Not Available [facility] ([facility]) [address] [facility], [place], [address], 08/17/2024 07:08:16 08/17/19 25 08/17/2024 CBC WITH DIFFE RENTI AL/PL ATELE T platelets 364 x10e3 /uL 150-45 0 normal Not Available [facility] ([facility]) [address] [facility], [place], [address], 08/17/2024 07:08:16 08/17/19 25 08/17/2024 CBC WITH DIFFE RENTI AL/PL ATELE T neutrophils 64 % not estab. normal Not Available [facility] ([facility]) [address] [facility], [place], [address], 08/17/2024 07:08:16 08/17/19 25 08/17/2024 CBC WITH DIFFE RENTI AL/PL ATELE T lymphs 26 % not estab. normal Not Available [facility] ([facility]) [address] [facility], [place], [address], 08/17/2024 07:08:16 08/17/19 25 08/17/2024 CBC WITH DIFFE RENTI AL/PL ATELE T monocytes 6 % not estab. normal Not Available [facility] ([facility]) [address] [facility], [place], [address], 08/17/2024 07:08:16 08/17/19 25 08/17/2024 CBC WITH DIFFE RENTI AL/PL ATELE T eos 3 % not estab. normal Not Available [facility] ([facility]) [address] [facility], [place], [address], 08/17/2024 07:08:16 08/17/19 25 08/17/2024 CBC WITH DIFFE RENTI AL/PL ATELE T basos 1 % not estab. normal Not Available [facility] ([facility]) [address] [facility], [place], [address], 08/17/2024 07:08:16 08/17/19 25 08/17/2024 CBC WITH DIFFE RENTI AL/PL ATELE T immature cells ASSOCIATE PROFESSOR OF KINESIOLOGY Not Available [facility] ([facility]) [address] [facility], [place], [address], 08/17/2024 07:08:16 08/17/19 25 08/17/2024 CBC WITH DIFFE RENTI AL/PL ATELE T neutrophils (absolute) 7.8 x10e3 /uL 1.4-7. 0 above high normal Not Available [facility] ([facility]) [address] [place], [address], 08/17/2024 07:08:16 08/17/19 25 08/17/2024 CBC WITH DIFFE RENTI AL/PL ATELE T lymphs (absolute) 3.2 x10e3 /uL 0.7-3. 1 above high normal Not Available [facility] ([facility]) [address] [place], [address], 08/17/2024 07:08:16 08/17/19 25 08/17/2024 CBC WITH DIFFE RENTI AL/PL ATELE T monocytes(ab solute) 0.7 x10e3 /uL 0.1-0. 9 normal Not Available [facility] ([facility]) [address] [place], [address], 08/17/2024 07:08:16 08/17/19 25 08/17/2024 CBC WITH DIFFE RENTI AL/PL ATELE T eos (absolute) 0.4 x10e3 /uL 0.0-0. 4 normal Not Available [facility] ([facility]) [address] [facility], [place], [address], 08/17/2024 07:08:16 08/17/19 25 08/17/2024 CBC WITH DIFFE RENTI AL/PL ATELE T baso (absolute) 0.1 x10e3 /uL 0.0-0. 2 normal Not Available [facility] ([facility]) [address] [facility], [place], [address], 08/17/2024 07:08:16 08/17/19 25 08/17/2024 CBC WITH DIFFE RENTI AL/PL ATELE T immature granulocytes 0 % not estab. Not Available [facility] ([facility]) [address] [facility], [place], [address], 08/17/2024 07:08:16 08/17/19 25 08/17/2024 CBC WITH DIFFE RENTI AL/PL ATELE T immature grans (abs) 0.0 x10e3 /uL 0.0-0. 1 Not Available [facility] ([facility]) [address] [place], [address], 08/17/2024 07:08:16 08/17/19 25 08/17/2024 CBC WITH DIFFE RENTI AL/PL ATELE T NRBC ASSOCIATE PROFESSOR OF KINESIOLOGY Not Available [facility] ([facility]) [address] [facility], [place], [address], 08/17/2024 07:08:16 08/17/19 25 08/17/2024 CBC WITH DIFFE RENTI AL/PL ATELE T hematology comments: ASSOCIATE PROFESSOR OF KINESIOLOGY Not Available [facility] ([facility]) [address] [place], [address], 08/17/2024 07:08:16 08/17/19 25 08/17/2024 COMP. METAB OLIC PANEL (14) glucose 250 mg/dL 70-99 above high normal Not Available [facility] ([facility]) [address] [place], [address], 08/17/2024 07:08:17 08/17/19 25 08/17/2024 COMP. METAB OLIC PANEL (14) BUN 11 mg/dL 8-27 normal Not Available [facility] ([facility]) [address] [facility] [place], [address], 08/17/2024 07:08:17 08/17/19 25 08/17/2024 COMP. METAB OLIC PANEL (14) creatinine 0.85 mg/dL 0.57-1 .00 normal Not Available [facility] ([facility]) [address] [facility] [place], [address], 08/17/2024 07:08:17 08/17/19 25 08/17/2024 COMP. METAB OLIC PANEL (14) eGFR 74 mL/mi n/1.7 3 >59 normal Not Available [facility] ([facility]) [address] [facility] [place], [address], 08/17/2024 07:08:17 08/17/19 25 08/17/2024 COMP. METAB OLIC PANEL (14) BUN/creatini ne ratio 13 12-28 normal Not Available [facility] ([facility]) [address] [facility] [place], [address], 08/17/2024 07:08:17 08/17/19 25 08/17/2024 COMP. METAB OLIC PANEL (14) sodium 139 mmol/ L 134-14 4 normal Not Available [facility] ([facility]) [address] [facility] [place], [address], 08/17/2024 07:08:17 08/17/19 25 08/17/2024 COMP. METAB OLIC PANEL (14) potassium 4.4 mmol/ L 3.5-5. 2 normal Not Available [facility] ([facility]) [address] [facility] [place], [address], 08/17/2024 07:08:17 08/17/19 25 08/17/2024 COMP. METAB OLIC PANEL (14) chloride 100 mmol/ L 96-106 normal Not Available [facility] ([facility]) [address] [facility] [place], [address], 08/17/2024 07:08:17 08/17/19 25 08/17/2024 COMP. METAB OLIC PANEL (14) carbon dioxide, total 23 mmol/ L 20-29 normal Not Available [facility] ([facility]) [address] [facility] [place], [address], 08/17/2024 07:08:17 08/17/19 25 08/17/2024 COMP. METAB OLIC PANEL (14) calcium 9.7 mg/dL 8.7-10 .3 normal Not Available [facility] ([facility]) [address] [facility] [place], [address], 08/17/2024 07:08:17 08/17/19 25 08/17/2024 COMP. METAB OLIC PANEL (14) protein, total 6.7 g/dL 6.0-8. 5 normal Not Available [facility] ([facility]) [address] [facility] [place], [address], 08/17/2024 07:08:17 08/17/19 25 08/17/2024 COMP. METAB OLIC PANEL (14) albumin 4.1 g/dL 3.9-4. 9 normal Not Available [facility] ([facility]) [address] [facility] [place], [address], 08/17/2024 07:08:17 08/17/19 25 08/17/2024 COMP. METAB OLIC PANEL (14) globulin, total 2.6 g/dL 1.5-4. 5 Not Available [facility] ([facility]) [address] [facility] [place], [address], 08/17/2024 07:08:17 08/17/19 25 08/17/2024 COMP. METAB OLIC PANEL (14) bilirubin, total 0.2 mg/dL 0.0-1. 2 normal Not Available [facility] ([facility]) [address] [place], [address], 08/17/2024 07:08:17 08/17/19 25 08/17/2024 COMP. METAB OLIC PANEL (14) alkaline phosphatase 114 IU/L 44-121 normal Not Available [facility] ([facility]) [address] [place], [address], 08/17/2024 07:08:17 08/17/19 25 08/17/2024 COMP. METAB OLIC PANEL (14) AST (SGOT) 12 IU/L 0-40 normal Not Available [facility] ([facility]) [address] [place], [address], 08/17/2024 07:08:17 08/17/19 25 08/17/2024 COMP. METAB OLIC PANEL (14) ALT (SGPT) 8 IU/L 0-32 normal Not Available [facility] ([facility]) [address] [place], [address], 08/17/2024 07:08:17 08/17/19 25 08/17/2024 LIPID PANEL cholesterol, total 285 mg/dL 100-19 9 above high normal Not Available [facility] ([facility]) [address] [place], [address], 08/17/2024 07:08:17 08/17/19 25 08/17/2024 LIPID PANEL triglyceride s 299 mg/dL 0-149 above high normal Not Available [facility] ([facility]) [address] [place], [address], 08/17/2024 07:08:17 08/17/19 25 08/17/2024 LIPID PANEL HDL cholesterol 53 mg/dL >39 normal Not Available [facility] ([facility]) [address] [facility], [place], [address], 08/17/2024 07:08:17 08/17/19 25 08/17/2024 LIPID PANEL VLDL cholesterol jesus 57 mg/dL 5-40 above high normal Not Available [facility] ([facility]) [address] [facility], [place], [address], 08/17/2024 07:08:17 08/17/19 25 08/17/2024 LIPID PANEL LDL chol calc ([facility]) 175 mg/dL 0-99 above high normal Not Available [facility] ([facility]) [address] [facility], [place], [address], 08/17/2024 07:08:17 08/17/19 25 08/17/2024 LIPID PANEL LDL calc comment: ASSOCIATE PROFESSOR OF KINESIOLOGY Not Available [facility] ([facility]) [address] [facility], [place], [address], 08/17/2024 07:08:17 08/17/19 25 08/17/2024 HCV ANTIB MARCELINO CASCA DE(PC R/GEN O) HCV Ab Non Reacti ve non reacti ve Not Available [facility] ([facility]) [address] [facility], [place], [address], 08/17/2024 07:08:18 08/17/19 25 08/17/2024 HCV ANTIB MARCELINO CASCA DE(PC R/GEN O) interpretati on: Commen t Not infec tyrel with HCV unles s early or acute infec tion is suspe cted (whic h may be delay ed in an immun ocomp romis ed indiv idual ), or other evide nce exist s to indic ate HCV infec tion. Not Available [facility] ([facility]) [address] [facility], [place], [address], 08/17/2024 07:08:18 08/17/19 25 08/17/2024 VITAM IN D, 25-HY DROXY vitamin D, 25-hydroxy 39.8 NG/mL 30.0-1 00.0 Vitam in D defic iency has been defin ed by the Insti tute of Medic ine and an Endoc rine Socie ty pract ice guide line as a level of serum 25-OH vitam in D less than 20 ng/mL (1,2) . The Endoc rine Socie ty went on to furth er defin e vitam in D insuf ficie ncy as a level betwe en 21 and 29 ng/mL (2). 1. IOM (Inst itute of Medic ine). 2010. Dieta ry refer ence intak es for calci um and D. Devin tellez [place]: [facility] . 2. Lita rose MF, Kimberly stokes [place], Latoya off-F irma i CLEMENTS, et al. Evalu ation , treat ment, and preve ntion of vitam in D defic iency : an Endoc rine Socie ty clini jesus pract ice guide line. JCEM. 2010; 96(7) :1911 -30. Not Available [facility] ([facility]) [address] [facility], [place], [address], 08/17/2024 07:08:18 08/17/19 25 08/16/2024 micro album in/cr eatin ine, mass ratio , urine Microalbumin 150 Not Available [address], [id number], 08/12/2024 08:53:53 08/17/19 25 08/16/2024 micro album in/cr eatin ine, mass ratio , urine Creatinine 300 Not Available [address], [address], 08/12/2024 08:53:53 08/17/19 25 08/16/2024 micro album in/cr eatin ine, mass ratio , urine Ratio 30-300 Not Available [address], [address], 08/12/2024 08:53:53 08/17/1908/16/2024 HbA1c (hemo globi n A1c), blood HbA1c 9.7 Not Available [address], [place], [address], 08/12/2024 08:53:53 03/20/2008/09/2021 MAMMO , diagn ostic , bilat eral No observ ation record ed. [address] (Radiology) [address], [place], [address], 03/28/2023 15:41:22 03/28/2003/28/2023 MAMMO , diagn ostic , digit al, bilat eral No observ ation record ed. [address] (Radiology) [address], [place], [address], 04/02/2023 15:18:02 03/31/2003/28/2023 US, breas t, unila teral No observ ation record ed. [address] (Radiology) [address], [place], [address], 04/02/2023 15:18:03 05/15/20 23 05/15/2023 US, breas t, unila teral No observ ation record ed. [address] (Radiology) [address], [place], [address], 05/15/2023 12:51:17 05/19/2005/15/2023 MAMMO , diagn ostic , digit al, bilat eral No observ ation record ed. [email or web address] (Radiology) [address] [place], [address], 05/28/2023 15:35:59 08/17/19 XR, chest , 2 view No observ ation record ed. [email or web address] [address], [address], 08/23/2024 16:11:46 Result Notes None recorded. Problems Name Problem SNOMED Code Status Onset Date Resolution Date Notes Provider Name and Address Organization Details Recorded Time Hypertensiv e disorder 72296069 Active [address], [address], [employer] 3 14:45:07 Type 2 diabetes mellitus 13824168 Active [address], [address], [employer] 3 14:45:33 Seasonal allergy 053405998 Active [address], [address], [employer] 3 14:45:56 Gastroesoph ageal reflux disease 852671736 Active [address], [address], [employer] 3 14:46:20 Depressive disorder 25474101 Active [address], [address], [employer] 3 14:47:39 Mixed hyperlipide omar 171095609 Active [address], [address], [employer] 3 14:48:05 Type 2 diabetes mellitus without complicatio n 582096654 Active 2022 Miriam Zuniga NP [address] [place] [address], [address], [employer] 4 10:31:57 Vitamin D deficiency 68538742 Active 2022 Miriam Zuniga, CYNDI [address] [place] [address], [address], [place] [employer] 4 10:32:09 Mammographi c mass of breast 523042491 Active 2022 Miriam Zuniga NP [address] [place] [address], [address], [place] [employer] 4 10:31:59 Eczema 41185401 Active 2022 Miriam Zuniga NP [address] [place] [address], [address], [place] [employer] 4 10:32:03 Viral syndrome 515869885 Completed 202202/06/2024 Miriam Zuniga NP [address] [place] [address], [address], [employer] 4 10:32:07 Generalized anxiety disorder 09726683 Active 2023 Miriam Zuniga NP [address] [place] [address], [address], [place] [employer] 4 10:32:00 Allergic rhinitis 61247319 Active 2023 Miriam Zuniga NP [address] [place] [address], [address], [employer] 4 10:32:05 History of mastectomy 962525474 Active 2023 Miriam Zuniga NP [address] [place] [address], [address], [place] [employer] 4 15:48:47 Gastroesoph ageal reflux disease without esophagitis 904707363 Active 2023 Miriam Zuniga NP [address] [place] [address], [address], [employer] 4 16:26:49 Chronic cough 27958169 Active 2024 Miriam Zuniga NP [address] [place] [address], [address], [employer] 5 08:35:55 Noncomplian ce with therapeutic regimen 851697167 Active 2024 Miriam Zuniga, CYNDI [address] [facility], [place], [address], [employer] 5 08:35:50 Problem Notes None recorded. Procedures Surgical History Date Name Laterality Status Provider Name and Address Organization Details Recorded Time 06/09/19 24 Bilateral Mastectomy completed [facility]. 02/19/2024 15:49:04 05/15/20 23 Most Recent Mammogram completed [facility]. 08/12/2024 11:49:53 total knee replacement completed [employer]. 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 01/23/2023 15:02:48 section completed [employer]. 01/23/2023 15:03:24 Imaging Results None recorded. Procedure Notes None recorded. Medical Equipment None Reported. Allergies Allergen ID Allergen Name Allergen Category Reaction Reaction Severity Criticality Documentation Date Start Date Code Code System Note Provider Name and Address Organization Details Recorded Time 73757 lisinopri l medicatio n cough Not available Not available 01/23/2023 80175 RxNorm [facility] [employer] 3 14:53:19 Medications Name Sig Start Date Stop Date Status Note LastModified by Organization Details LastModified Time anastrozole 1 mg tablet TAKE ONE TABLET BY MOUTH EVERY DAY active Not Available Not Available No t Available atorvastati n 80 mg tablet TAKE ONE TABLET BY MOUTH EVERY DAY for cholester ol active Not Available Not Available No t Available citalopram 40 mg tablet TAKE ONE TABLET BY MOUTH EVERY DAY DIRECTED active Not Available Not Available No t Available benzonatate 200 mg capsule TAKE ONE CAPSULE BY MOUTH THREE TIMES DAILY active Not Available Not Available No t Available ondansetron HCl 8 mg tablet Take 1 tablet by mouth 3 (Three) Times a Day As Needed for Nausea or Vomiting. active Not Available Not Available No t Available lovastatin 40 mg tablet Take 2 tablets every day by oral route at bedtime. 02/22 completed Not Available Not Available Not Available amlodipine 5 mg tablet TAKE ONE TABLET BY MOUTH EVERY DAY DIRECTED FOR BLOOD PRESSURE active Not Available Not Available No t Available triamcinolo ne acetonide 0.1 % topical cream APPLY A THIN LAYER TO THE AFFECTED AREA(S) BY TOPICAL ROUTE 2 TIMES PER DAY 02/18 completed Not Available Not Available Not Available oxycodone-a cetaminophe n 5 mg-325 mg tablet 02/18 completed Not Available Not Available Not Available pantoprazol e 40 mg tablet,kalyani yed release TAKE ONE TABLET BY MOUTH EVERY DAY active Not Available Not Available No t Available metformin 1,000 mg tablet TAKE ONE TABLET BY MOUTH TWICE DAILY active Not Available Not Available No t Available dexamethaso ne 4 mg tablet Take 2 tablets oral twice a day for 3 consecuti ve days beginning the day before chemother apy and continue for 6 doses. 02/18 completed Not Available Not Available Not Available montelukast 10 mg tablet TAKE ONE TABLET BY MOUTH EVERY DAY active Not Available Not Available No t Available irbesartan 150 mg tablet TAKE ONE TABLET BY MOUTH EVERY DAY active Not Available Not Available No t Available Vitamin D2 1,250 mcg (50,000 unit) capsule TAKE ONE CAPSULE BY MOUTH WEEKLY FOR VITAMIN d. need appointme nt FOR further refills. active Not Available Not Available No t Available pioglitazon e 30 mg tablet TAKE ONE TABLET BY MOUTH EVERY DAY DIRECTED active Not Available Not Available No t Available ezetimibe 10 mg tablet TAKE ONE TABLET BY MOUTH EVERY DAY for cholester ol active Not Available Not Available No t Available bupropion HCl XL 150 mg 24 hr tablet, extended release TAKE ONE TABLET BY MOUTH EVERY DAY DIRECTED active Not Available Not Available No t Available omega-3 acid ethyl esters 1 gram capsule TAKE TWO CAPSULES BY MOUTH TWICE DAILY for triglycer ides active Not Available Not Available No t Available Januvia 100 mg tablet Take 1 tablet every day by oral route as directed. 08/16 completed Not Available Not Available Not Available levocetiriz ine 5 mg tablet TAKE ONE TABLET BY MOUTH ONCE DAILY active Not Available Not Available No t Available Ozempic 0.25 mg or 0.5 mg (2 mg/1.5 mL) subcutaneou s pen injector Inject 0.25 mg every week by subcutane ous route. 2024 active Not Available Not Available Not Avai lable Ozempic 1 mg/dose (4 mg/3 mL) subcutaneou s pen injector INJECT ONE MG SUBCUTANE OUSLY once weekly active Not Available Not Available No t Available Ozempic 0.25 mg or 0.5 mg (2 mg/3 mL) subcutaneou s pen injector Inject 0.5 mg every week by subcutane ous route. active Not Available Not Available No t Available Vitals Date Recorded Body height Body mass index (BMI) Body weight Heart rate Oxygen saturation Oxygen saturation in Arterial blood by Pulse oximetry Systolic blood pressure Diastolic blood pressure Provider Name and Address Organization Details Last Updated DateTime 5 160.02 cm 50.4 kg/m2 881988. 63 g 81 /min 93 % 93 % 138 mm[Hg] 83 mm[Hg] Annel J[facility]. 5 13:44:35 Date Recorded Body height Body mass index (BMI) Body weight Heart rate Oxygen saturation Oxygen saturation in Arterial blood by Pulse oximetry Systolic blood pressure Diastolic blood pressure Provider Name and Address Organization Details Last Updated DateTime 3 160.02 cm 52.1 kg/m2 743227. 16 g 82 /min 94 % 94 % 127 mm[Hg] 63 mm[Hg] MALLIKA SU [employer] 3 15:15:23 Date Recorded Body height Body mass index (BMI) Body weight Heart rate Oxygen saturation Oxygen saturation in Arterial blood by Pulse oximetry Systolic blood pressure Diastolic blood pressure Provider Name and Address Organization Details Last Updated DateTime 4 160.02 cm 50 kg/m2 618294. 45 g 74 /min 94 % 94 % 122 mm[Hg] 70 mm[Hg] Annel Jinn. 4 15:47:43 Date Recorded Body height Heart rate Oxygen saturation Oxygen saturation in Arterial blood by Pulse oximetry Body mass index (BMI) Body weight Systolic blood pressure Diastolic blood pressure Provider Name and Address Organization Details Last Updated DateTime 3 160.02 cm 79 /min 95 % 95 % 51.2 kg/m2 430448. 19 g 129 mm[Hg] 67 mm[Hg] MALLIKA SU [employer] 3 13:27:38 Date Recorded Body height Body mass index (BMI) Body weight Heart rate Oxygen saturation Oxygen saturation in Arterial blood by Pulse oximetry Body temperature Systolic blood pressure Diastolic blood pressure Provider Name and Address Organization Details Last Updated DateTime 3 160.02 cm 55.1 kg/m2 163858. 23 g 85 /min 92 % 92 % 99.1 [degF] 114 mm[Hg] 73 mm[Hg] MALLIKA SU [employer] 3 13:04:53 Social History Question Answer Notes LastModified by Organizat ion Details LastModified Time Tobacco Smoking Status [facility] 01/23/2023 15:00:36 Do You Have An Advance Directive? Yes DNR [email or web address] Information n ot available 01/23/2023 Is Your Home Air Conditioned? Yes [email or web address] Information not available 01/23/2023 Are You Blind Or Do You Have Difficulty Seeing? No [email or web address] Information n ot available 01/23/2023 What Is Your Level Of Caffeine Consumption? Moderate [email or web address] Information not available 01/23/2023 Are You A Caregiver? No [email or web address] Information not available 01/23/2023 In The 14 Days Before Symptom Onset, Have You Had Close Contact With A Laboratory-confirm ed COVID-19 While That Case Was Ill? No Information n ot available 02/19/2024 In The 14 Days Before Symptom Onset, Have You Had Close Contact With A Person Who Is Under Investigation For COVID-19 While That Person Was Ill? No [email or web address] Information not available 02/19/2024 Have You Been To An Area Known To Be High Risk For COVID-19? No [email or web address] Information not available 01/23/2023 Are You Deaf Or Do You Have Serious Difficulty Hearing? No [email or web address] Information not available 01/23/2023 What Type Of Diet Are You Following? REGULAR [email or web address] Information n ot available 01/23/2023 What Is The Highest Grade Or Level Of School You Have Completed Or The Highest Degree You Have Received? HM33712-5 [email or web address] Information not available 01/23/2023 Have There Been Any Changes To Your Family Or Social Situation? No [email or web address] Information no t available 01/23/2023 Are There Any Guns Present In Your Home? Yes Information not available 01/23/2023 Which Of Your Hands Is Dominant? Right [email or web address] Information n ot available 01/23/2023 Do You Have A Medical Power Of Deliverer Pharmacy? No [email or web address] Information not available 01/23/2023 What Was The Date Of Your Most Recent Tobacco Screening? 08/16/2024 [email or web address] Information not available 08/16/2024 Do You Have Any Pets? Yes [email or web address] Information not available 01/23/2023 What Is Your Relationship Status? [email or web address] Information not available 01/23/2023 Do You Use Your Seat Belt Or Car Seat Routinely? Yes [email or web address] Information not available 01/23/2023 Are You Sexually Active? No [email or web address] Information not available 02/19/2024 Do You Have Smoke And Carbon Monoxide Detectors In Your Home? No Information not available 01/23/2023 Are You Passively Exposed To Smoke? Yes [email or web address] Information no t available 01/23/2023 Are There Any Smokers In Your House? Yes [email or web address] Information not available 01/23/2023 Do You Participate In Social Media? Yes [email or web address] Information not available 02/19/2024 Do You Use Sunscreen Routinely? No [email or web address] Information not available 01/23/2023 Has Tobacco Cessation Counseling Been Provided? No [email or web address] Information not available 02/19/2024 Have You Recently Traveled Abroad? No [email or web address] Information not available 01/23/2023 Do You Have Difficulty Walking Or Climbing Stairs? Yes [email or web address] Information not available 01/23/2023 Are You Currently In School? No [email or web address] Information not available 01/23/2023 Do You Have Any Dietary Restrictions? No [email or web address] Information not available 02/19/2024 Sex: Female Functional Status Question Answer Note LastModified by Organizat ion Details LastModified Time Do you use any illicit or recreational drugs? No [email or web address] Information not available 01/23/2023 Do you or have you ever used any other forms of tobacco or nicotine? No [email or web address] Information not available 01/23/2023 What is your level of alcohol consumption? None [email or web address] Information not available 01/23/2023 Are you currently employed? No Disabled [email or web address] Information not available 01/23/2023 Do you have transportation difficulties? No Information not available 01/23/2023 Are you able to walk? YESWOREST [email or web address] Information not available 01/23/2023 Do you have difficulty doing errands alone? No [email or web address] Information not available 01/23/2023 Are you able to care for yourself? Yes [email or web address] Information n ot available 01/23/2023 Do you have difficulty dressing or bathing? No [email or web address] Information not available 01/23/2023 Mental Status Question Answer Note LastModified by Organizat ion Details LastModified Time Do you feel stressed (tense, restless, nervous, or anxious, or unable to sleep at night)? [id number] Information not available 02/19/2024 Do you have difficulty concentrating, remembering or making decisions? No [email or web address] Information no t available 01/23/2023 Family History Relationship Description Onset Age of this Age Resolved Age Notes LastModified by Organization Details LastModified Time Father Myocardial infarction [email or web address] Not available 14:56:56 Mother Family history of malignant neoplasm [email or web address] Not available 14:57:13 Sister Family history of malignant neoplasm [email or web address] Not available 14:57:13 Sister Diabetes mellitus [email or web address] Not available 14:57:44 Sister Myocardial infarction Not available 14:57:57 Brother Myocardial infarction [email or web address] Not available 14:57:16 Brother Cirrhosis of liver [email or web address] Not available 14:57:29 Medical History Condition Response Hospitalizations N Diabetes Y Anxiety Disorder Y Allergies/Hayfever Y Acid Reflux (GERD) Y Emergency room visit since last appointm ent. N Hypertension Y Depression Y High Cholesterol Y Gynecological History Statement/Question Response Date of Last Pap Smear Most Recent Mammogram 05/15/2023 Obstetrics History GPAL:G 0 P 0 0 0 0 Past Encounters Encounter ID Performer Location Encounter Start Date Encounter Closed Date Diagnosis/Indication Diagnosis SNOMED-CT Code Diagnosis ICD10 Code Diagnosis [id number] [place] [address] 01/23/2023 14:10:48 01/23/2023 15:52:48 Mixed hyperlipidemia 247927226 E78.2 Type 2 maki betes mellitus without complication 204811351 E11.9 Vitamin D deficiency 347 45291 E55.9 Screening for osteoporosis 543963403 Z13.820 Screening for cardiovascular system disease 258005624 Z13.6 Screening mammography 24 113804 Z12.31 Adult heal th examination 084583669 Z00.00 Screening for malignant neoplasm of colon 583367174 Z12.11 Body mass index 40+ - severely obese 959068305 Z68.43 [id number] SONY [place] [address] 02/27/2023 13:15:59 02/27/2023 14:23:23 Type 2 diabetes mellitus without complication 816566864 E11.9 Mass of left breast 1224 747643 6811443 N63.20 Hypertensive disorder 38 130816 I10 Screening for malignant neoplasm of colon 299809783 Z12.11 [id number] [place] [address] 05/29/2023 12:49:26 05/29/2023 14:15:27 Type 2 diabetes mellitus without complication 092118092 E11.9 Viral screening 06874065 4 Z11.59 Eczema 48681940 L30.9 Noncomplia nce with medication regimen 716252352 Z91.148 Viral syndrome 781550922 B34.9 [id number] Miriam Zuniga, CYNDI [place] [address] 02/19/2024 15:05:27 02/19/2024 16:45:11 Type 2 diabetes mellitus without complication 335886538 E11.9 Screening for malignant neoplasm of colon 761139215 Z12.11 Depressive disorder 3548 9007 F32.A Hypertensive disorder 38 972650 I10 Vitamin D deficiency 347 45332 E55.9 Mixed hyperlipidemia 267 644151 E78.2 Generalize d anxiety disorder 51097247 F41.1 Allergic rhinitis 760576 04 J30.9 Gastroesop hageal reflux disease without esophagitis 465372370 K21.9 Screening for osteoporosis 121252646 Z13.820 Body mass index 40+ - severely obese 662039500 Z68.43 [id number] Miriam Zuniga NP [place] [id number] 08/16/2024 13:21:54 08/16/2024 14:44:41 Hypertensive disorder 90076800 I10 Mixed hyperlipidemia 267 791568 E78.2 Type 2 maki betes mellitus without complication 581047651 E11.9 Generalize d anxiety disorder 90702066 F41.1 Depressive disorder 3548 9007 F32.A Allergic rhinitis 031266 04 J30.9 Vitamin D deficiency 347 99469 E55.9 Hepatitis C screening 41 7619027 Z11.59 Chronic cough 45187032 R 05.3 Gastroesop hageal reflux disease without esophagitis 869510078 K21.9 Noncomplia nce with therapeutic regimen 246746999 Z91.199 Goals Section Goal Description Progress Status Start Date LastModified by Organization Details LastModified Time Diet Adherence Follows prescribed or recommended diet. Limit daily salt intake. Avoid processed foods. None active 2024 Susi Briggs Information not available 09/15/2024 16:49:46 Blood Pressure Maintains blood pressure goal as defined by care team None active 2024 Susi Briggs Information not available 09/15/2024 16:50:17 Follow-up Appointment( s) Attends referral and/or follow-up appointment( s) as per care team recommendati on(s) None active 2024 Susi Briggs Information not available 09/15/2024 16:48:23 Medication Regimen Follows medication regimen as per care team recommendati on(s) None active 2024 Susi Briggs Information not available 09/15/2024 16:48:23 Hemoglobin A1C Lowers or maintains hemoglobin A1C (HbA1c) as per care team recommendati on(s) [TARGET: less than or equal to 7%] None active 2024 Susi Briggs Information not available 09/15/2024 16:48:23 Health Concerns Section Related Observation LastModified by Organization Detai ls LastModified Time None Recorded Concern Status LastModified by Organization Details LastModified Time Hypertensive disorder Active Susi Briggs Not Availabl e 09/15/2024 16:50:17 Type 2 diabetes mellitus Active Susi Briggs Not Available 09/15/2024 16:44 :55 Advance Directives Directive Y: DNR Payers Insurance Date Sequence Insurance Name Policy Number Policy Peck Covered Member ID Peck Member ID Guarantor Name 08/25/2024 1 [place] [id number] Judi Aurora [id number] Judi Aurora 11/18/2024 1 [place]MED[place]ACEMENT HMO[place] [id number] Juid C Aurora [id number] Judi Aurora 11/18/2024 [place] [employer] [facility] Judi C Aurora [id number] Judi Aurora Notes Date Note Type Note Provider Name and Address Organization Details Recorded Time 01/23/2023 text/html Medicare Annual Wellness VisitReported bypatient.Diet and Nutrition:diet is high in salt;diet is high in fat, low in fiber;high caloric intake Fracture Risk:no history of fractures; no recent explained fracture; no sudden unexplained fractures; no previous musculoskeletal injuries Physical Activity:does not exercise on a regular basis Depression Risk:never feels sad, empty, or tearful; no loss of interest in activities; no significant changes in weight; no sleep disturbances or insomnia Orientation:no disorientation to time; no disorientation to date; no disorientation to place Concentration and Memory:no decreased concentrating ability; no memory lapses or loss; does not forget words Speech/Motor difficulties:no speech difficulties; no difficulty expressing formulated concepts Hearing:no loss of hearing Vision:no vision problems Activities of Daily Living:able to bathe with limited or no assistance; able to contol urination and bowels; able to dress with limited or no assistance; able to feed self with limited or no assistance; able to get out of chair or bed with limited or no assistance; able to groom with limited or no assistance; able to toilet with limited or no assistance Instrumental Activities of Daily Living:able to do house work with limited or no assistance; able to grocery shop with limited or no assistance; able to manage medications with limited or no assistance Falls Risk Assessment:no frequent falls while walking Home Safety:no unsafe danilo [facility] and Medicare wellness exam. States she does not routinely take her medications and may miss doses for up to 3 days. Mammogram in August of 2021. Colonoscopy about 15 years ago and cologuard since that time. COLTON COUGHLIN [address] [place], [address], [employer] 01/23/2023 15:47:17 02/27/2023 text/html Follow-up for diabetes. States she has been taking medication as prescribed. Reports that she is beginning to feel better. Presents reporting lump to left breast. Has history of same and was being watched on mammogram. Feels it has gotten bigger. Last mammogram was August of 2021. COLTON COUGHLIN [address] [place], [address], [employer] 02/27/2023 14:06:28 05/29/2023 text/html Follow-up: Recent breast ultrasound/biopsy. On June 24 she says the breast surgeon at [facility] related to diagnosis. States for the past 3-4 weeks she has not been taking her medications regularly. Upper airway congestion, mild cough over the past couple of days. COLTON COUGHLIN [address] [place], [address], [employer] 05/29/2023 13:56:50 02/19/2024 text/html Patient presents for follow up on HTN, diabetes, GERD, depression/COLBY, hyperlipidemia and vitamin D deficiency.Last mammo 05/2023- Had double mastectomy. Completed 4 treatments of chemo. Did not do radiation. Follows up with [facility] in March. Last chemo was in October.Colon CA screen - needs colonoscopy. had + cologuard last year.Diabetes -taking medications as prescribed. A1C has improved from 10.2 to 8.7.Anxiety / Depression - well controlled with current regimen.She has had some left knee pain for the last few weeks. She states her knee gave out when she was getting in the truck a few weeks ago. She has had right TKR and thinks she will eventually need LTKR, but is not ready for referral. She will call back if she decides she would like referral back to [facility]. [facility]. Miriam Zuniga NP [address] [place], [address], [employer] 02/19/2024 16:36:20 08/16/2024 text/html Completely out o f metformin, vitamin D and a few other things. Inconsistent with meds.sugars running a little over 200 in AMs. She has not filled most of her medications since she got a 3 month supply in 02/2024 (6 months ago). She missed a few appts due to snow per her report.Has had cough all day and all night for the last month. She had a cold for a few days when it first started and then the cough stayed around. No shortness of breath or wheezing. Annoying irritating cough. No fever or chills. Miriam Zuniga NP [address] [place], [address], [employer] 08/20/2024 08:36:28 OBGyn Episode No OBEpisode recorded.
--- NOTE | 2024-11-21 13:59 | ECG_ITS ---
APPROVED REPORT Exam: Resting ECG HR:98 bpm ECG Measurements Heart Rate 98 AXES NM 172 P 60 QRSd 117 QRS -40 QT 363 T 30 QTc 419 Conclusion SINUS RHYTHM LEFT AXIS DEVIATION [QRS AXIS < -30] PATTERN CONSISTENT WITH PULMONARY DISEASE MODERATE INTRAVENTRICULAR CONDUCTION DELAY [110+ ms QRS DURATION] MODERATE ST DEPRESSION [0.05+ mV ST DEPRESSION] No STEMI Electronically signed by : ROBERT THOMAS, 11/22/2024 03:56:57
--- NOTE | 2024-11-21 14:09 | PC.NURSE ---
lad called to say the chemistry tube(green, gold, red) were hemolyzed, tech to re draw
[2024-11-21 14:20] LABS: Lactic Acid 2.7 mmol/L (0.7-2.1)
[2024-11-21] MEDS: CEFTRIAXONE SODIUM 1 GM in 0.9 % SODIUM CHLORIDE 50 ML IV (14:36)
[2024-11-21] MEDS: ONDANSETRON 4MG/2ML VIAL 4 MG IV (14:36)
[2024-11-21] MEDS: 0.9 % SODIUM CHLORIDE 1000ML 1,000 ML 999 ML IV (14:36)
--- NOTE | 2024-11-21 14:37 | PC.NURSE ---
unsuccessful attempts x3 for a recollect. called lab to stick
[2024-11-21 15:07] LABS: Albumin Level 3.8 g/dl (3.5-5.0); Chloride 102 mmol/L (98-107); Potassium 3.5 mmoL/L (3.5-5.1); Sodium 133 mmol/L (136-145)
[2024-11-21 15:10] LABS: Alanine Aminotransferase 17 U/L (12-78); Albumin/Globulin Ratio 1.3 (1.1-1.8); Alkaline Phosphatase 95 U/L (38-126); Anion Gap 9.5 mEq/L (5-15); Aspartate Amino Transferase 26 U/L (14-36); Bilirubin,Total 0.5 mg/dl (0.2-1.3); Blood Urea Nitrogen 12 mg/dl (7-17); Carbon Dioxide 25 mmol/L (22.0-30.0); Creatinine Clearance Estimated 42 mL/min (50-200); Estimated Glomerular Filt Rate 62 ml/min (>60); GFR (African American) 75 ML/MIN (>60); Lipase 50 U/L (23-300); Total Protein,Serum 6.8 g/dl (6.3-8.2)
[2024-11-21 15:11] LABS: Calcium 9.4 mg/dl (8.4-10.2); Glucose 223 mg/dl (74-100)
--- NOTE | 2024-11-21 15:16 | PC.NURSE ---
pt gone for CT at this time with RAD via wheelchair
[2024-11-21 15:20] LABS: NT Pro Brain Natriuretic Pep. 147 pg/mL (0-125)
[2024-11-21] MEDS: SODIUM CHLORIDE 0.9% 10ML SYR (RAD ONLY) 10 ML IV (15:23)
[2024-11-21] MEDS: IOPAMIDOL-370 (76%);100ML BOTTLE 85 ML IV (15:23)
[2024-11-21 15:24] LABS: Troponin I < 0.01 ng/ml (0.00-0.034)
[2024-11-21 15:25] LABS: Microscopic, Urine URINE MICROSCOPIC (MICROSCOPIC)
[2024-11-21 15:34] LABS: Appearance,Urine CLEAR (Clear); Bilirubin,Urine Negative (Negative); Blood, Urine 2+ (Negative); Color,Urine YELLOW (Yellow); Glucose,Urine (UA) Negative (Negative); Ketones,Urine Negative (Negative); Leukocyte Esterase,Urine Negative (Negative); Nitrate,Urine Negative (Negative); PH,Urine 5.5 (5.0-8.5); Protein,Urine 1+ (Negative); Specific Gravity, Urine 1.025 (1.005-1.030); Urobilinogen,Urine 0.2 EU/dl (0.2)
[2024-11-21 15:45] LABS: Bacteria,Urine 1+ /lpf; RBC,Urine Occasional #/hpf (0-3)
--- NOTE | 2024-11-21 17:06 | PC.NURSE ---
preparation supervisor freezing notified of admission to hospitalist
--- NOTE | 2024-11-21 17:18 | PC.NURSE ---
pt to the restroom
--- NOTE | 2024-11-21 17:18 | PC.NURSE ---
Report called to Raegan MITCHELL
[2024-11-21 18:05] LABS: Reflex Lactic Add Lactic Reflex
--- NOTE | 2024-11-21 18:41 | PC.NURSE ---
Pt to have bring in home meds tomorrow
[2024-11-21 19:17] LABS: Troponin I 0.03 ng/ml (0.00-0.034)
--- NOTE | 2024-11-21 19:32 | P.HP_ITS ---
<Statement entered by Sammy Hdez MD - 11/24/24 11:58> Rounded on patient after nurse practitioner. Personally examined and interviewed patient. Agree with exam findings and care plan as documented. History of Present Illness *Admission Date: 11/21/24 *Reason for visit:: Cough, nausea vomiting diarrhea *History of present illness: This morbidly obese 69-year-old female is a diabetic comes into our emergency room due to having episodes of abdominal pain nausea and vomiting earlier today., Also has a cough with upper airway rattling. Patient was seen in the emergency room and felt to have colitis.. Patient's main complaint is her cough at this time.. She is a non-smoker she is not having any abdominal pain during this exam but examination of the Scan of the abdomen shows a enlarged gallbladder with a very large section covered and stone. Question whether or not this is colitis or gallbladder related. Also showing early cirrhosis. Patient has been a diabetic for several years also history of breast cancer with mastectomy bilateral. Dr. Giron, had spoken with the ER physician excepted the patient. But since it was a change of shift I have taken the patient and doing the note and placing the admission orders. Plan to consult Dr. Monroy to evaluate the abdomen for any potential that this nausea vomiting being called caused by the gallbladder versus is colitis.. Also will treat for potential respiratory infection I will add p.o. Levaquin to cover both has had Rocephin in the ER. As a precaution we will place on n.p.o. after midnight will continue ACHS fingerstick blood sugars with sliding scale and continuing most of home meds PFSH PFSH Disclaimer: The information contained in this section may have been updated after the kasia adrian was seen, as this information can be updated by other users. Medical History HX: breast cancer Diabetes type 2 GERD (gastroesophageal reflux disease) HTN (hypertension) HLD (hyperlipidemia) Surgical History H/O bilateral mastectomy History of total right knee replacement Family History Other Breast cancer Cancer of back Heart attack Social History Smoking Status: Never smoker alcohol intake: never current occupational status: other Travel in the last 8 weeks?: None Have you lived/traveled outside US in past 30 days?: No Contact w/someone who lives/traveled outside US past 30 days?: No Exposure to someone with infectious disease in past 14 days?: No Do you have a fever (greater than 100.4 F or 38 C)?: No Have you tested positive for COVID-19?: No Exposed to someone with COVID-19 in past 14 days?: No Do you have a sore throat?: No Do you have a cough?: No Do you have any weakness?: Yes Are you experiencing any nausea/vomitting?: No Do you have any diarrhea?: No Are you experiencing any unusual bleeding?: No Do you have any muscle aches/pain?: No Do you have any abdominal pain?: No Are you experiencing loss of taste or smell?: No Other Medical History Have you received the Flu Vaccine for this season: No Have you received the Pneumonia Vaccine: Yes Review of Systems Review of Systems Review of systems:: pertinent systems reviewed and negative unless documented below Constitutional Constitutional: Reports as per HPI Comments: Patient noted she is total control of her self-care able to dress walk feed use the restroom. Having no problems with mobilization. She does see a provider in [facility] Eyes: Reports as per HPI ENT Ears, Nose, Mouth, and Throat: Reports as per HPI *Cardiovascular Cardiovascular: Reports as per HPI *Respiratory Respiratory: Reports cough *Gastrointestinal Gastrointestinal: Reports abdominal pain, Reports nausea and Reports vomiting *Genitourinary Genitourinary: Reports as per HPI *Musculoskeletal Musculoskeletal: Reports as per HPI Integumentary/Breasts Skin/Breast: Reports as per HPI *Neurologic Neurologic: Reports as per HPI Psychiatric Psychiatric: Reports as per HPI Endocrine Endocrine: Reports as per HPI Hematologic/Lymphatic Hematologic/Lymphatic: Reports as per HPI Allergic/Immunologic Allergic/Immunologic: Reports as per HPI Meds Home Medications and Allergies Home Medications ?Medication ?Instructions ?Recorded ?Confirmed ?Type amlodipine 5 mg tablet 5 mg PO DAILY 11/21/2411/21 History anastrozole 1 mg tablet 1 mg PO DAILY 11/21/2411/21 History atorvastatin 80 mg tablet 80 mg PO HS 11/21/24 5 History benzonatate 200 mg capsule 200 mg PO TID 11/21/2411/07 History bupropion HCl 150 mg 24 hr tablet, 150 mg PO DAILY 11/21/24 History extended release citalopram 40 mg tablet 40 mg PO DAILY 11/21/2411/07 History ezetimibe 10 mg tablet 10 mg PO DAILY 11/21/2411/07 History irbesartan 150 mg tablet 150 mg PO DAILY 11/21/24 History levocetirizine 5 mg tablet 5 mg PO DAILY 11/21/2411/07 History metformin 1,000 mg tablet 1,000 mg PO BID 11/21/24 History montelukast 10 mg tablet 10 mg PO PM 11/21/24 5 History omega-3 acid ethyl esters 1 gram 2 g PO BID 11/21/24 0 11/22/24 History capsule pantoprazole 40 mg tablet,delayed 40 mg PO DAILY 11/2111/21/24 History release pioglitazone 30 mg tablet 30 mg PO DAILY 11/21/2411/07 History semaglutide 0.25 mg or 0.5 mg (2 1 mg SQ WEEKLY 11/21/24 History mg/3 mL) subcutaneous pen injector (Sentri) New Prescriptions to Start Prescriptions: Allergies Allergy/AdvReac Type Severity Reaction Status Date / Time lisinopril AdvReac Mild Cough Verified 11/21/24 13:55 Exam Data for Last 24 hours Vital signs and Labs for Last 24 Hours: Temp Pulse Resp BP Pulse Ox O2 Del Method 97.6 F 82 18 126/97 H 93 L Room Air 11/21/24 17:19 11/21/24 18:10 11/21/24 18:10 11/21/24 18:10 11/21/24 18:10 11/21/24 18:41 Laboratory Results - last 24 hr 11/21/24 13:45: WBC 14.7 H, RBC 4.97, Hgb 13.4, Hct 41.5, MCV 83.5, MCH 27.0, MCHC 32.3, RDW 15.8, Plt Count 291, MPV 9.8, Neut % (Auto) 80.7 H, Lymph % (Auto) 11.5, [place] % (Auto) 5.8, Eos % (Auto) 1.2, Baso % (Auto) 0.5, Neut # (Auto) 11.8 H, Lymph # (Auto) 1.7, [place] # (Auto) 0.9, Eos # (Auto) 0.2, Baso # (Auto) 0.1 11/21/24 13:48: SARS-CoV-2 (PCR) Not detected, Influenza A Untype (PCR) Not detected, Influenza Type B (PCR) Not detected 11/21/24 13:57: Lactate 2.7 H 11/21/24 14:45: Sodium 133 L, Potassium 3.5, Chloride 102, Carbon Dioxide 25, Anion Gap 9.5, BUN 12, Creatinine 0.90, Estimated Creat Clear 42, Estimated GFR 62, Est GFR ( Amer) 75, Glucose 223 H, Calcium 9.4, Total Bilirubin 0.5, AST 26, ALT 17, Alkaline Phosphatase 95, Troponin I < 0.01, NT-Pro-B Natriuret Pep 147 H, Total Protein 6.8, Albumin 3.8, Globulin 3.0, Albumin/Globulin Ratio 1.3, Lipase 50 11/21/24 15:20: Urine Color Yellow, Urine Appearance Clear, Urine pH 5.5, Ur Specific [place] 1.025, Urine Protein 1+ A, Urine Glucose (UA) Negative, Urine Ketones Negative, Urine Blood 2+ A, Urine Nitrate Negative, Urine Bilirubin Negative, Urine Urobilinogen 0.2, Ur Leukocyte Esterase Negative, Urine RBC Occ asional, Urine WBC None, Ur Squamous Epith Cells 3-5, Urine Bacteria 1+ 11/21/24 18:15: Troponin I 0.03 I & O for Last 24 hours: Intake & Output 11/19/24 11/20/24 11/21/24 11/22/24 05:59 05:59 05:59 05:59 Weight 270 lb Radiology Reports for the Last 24 Hours: [place] CT of the abdomen and the lower lungs showed no signs of consolidation fluid or atelectasis.. CT scan of the abdomen may be some polyp bowel wall thickening but mainly a very large gallbladder with a significant amount of calculi., Question early cirrhosis but has normal labs Constitutional Constitutional: no acute distress and morbidly obese Comments: Very obese female but able to move sit up without assistance. Skin appears pale she looks slightly anemic but the lab report shows that she has normal H&H *Routine HEENT Exam Head: Present normocephalic and atraumatic Eye: Present PERRL ENT: Present mucous membranes moist *Routine Neck Exam Neck: Present supple and full ROM Routine Chest/Breast/Axilla Exam Comments: History of both breast being removed *Routine Respiratory Exam Respiratory: Present rhonchi, diminished air movement, normal respiratory effort, able to speak in complete sentences and symmetric chest movement Comments: Left lung upper portion has a slight rattle wheeze with delayed inspiratory sounds *Routine Cardiovascular Exam Cardiovascular: Present RRR, Normal S1 and Normal S2 Comments: Examination of the lower extremities showed no signs of edema capillary refill to all nailbeds *Routine Abdominal Exam Abdominal: Present soft, normoactive bowel sounds and obese Comments: Patient is very large abdomen but on palpation found no pain specially focusing on right upper quadrant patient expressed no feeling of nausea during the exam *Routine Rectal Exam Rectal:: deferred *Routine Genitalia Exam Genitalia:: deferred *Routine Extremities Exam Extremities: Present pulses intact and normal capillary refill Routine Back/Spine/Pelvis Exam Back/Spine: Present full ROM and CVA tenderness Comments: Had the patient sit up examination of her back finds no signs of injury or significant discrepancies skin was also intact no signs of any skin breakdown *Routine Skin Exam Skin: Present intact, dry, warm and normal turgor Comments: Kind of poor turgor to the lower extremities *Routine Neurological Exam Neurological: Present alert, oriented X3, CN II-XII intact, moving all extremities, normal tone, vision grossly intact and hearing grossly intact Routine Psychiatric Exam Psychiatric: Present normal affect, normal thought process, cooperative, good insight and good judgment H&P: Result Impressions 1. Upper respiratory infection with possible early bronchitis 2. Abdominal nausea vomiting diarrhea which appears to be stable at this point in time resting colitis from CT scan of the abdomen and extremely large gallbladder with a large amount of calculi Imaging and Cardiology CT scan - abdomen: Additional comments: Low-attenuation bowel wall thickening in the right colon and transverse colon consistent with colitis. Differential diagnosis includes infectious and inflammatory etiologies.. 2. Lobulated liver consistent with cirrhosis . 3. Gallstone in the gallbladder . 4. Nonspecific inflammatory changes in the anterior aspect of the pelvis. (series 3, image [id number]). That may be associated with the umbilical hernia in this region. Assessment and Plan *Assessment and plan (1) Colitis: Status: Acute Category: Medical Code(s): K52.9 - Noninfective gastroenteritis and colitis, unspecified (2) Bronchitis: Status: Acute Category: Medical Code(s): J40 - Bronchitis, not specified as acute or chronic (3) Nausea vomiting and diarrhea: Status: Resolved Category: Medical Code(s): R11.2 - Nausea with vomiting, unspecified; R19.7 - Diarrhea, unspecified (4) Gallstones: Status: Acute Category: Medical Code(s): K80.20 - Calculus of gallbladder without cholecystitis without obstruction (5) Diabetes mellitus: Status: Acute Qualifiers: Diabetes mellitus complication status: without complication Diabetes mellitus senior care insulin use: with senior care use Diabetes mellitus type: type 2 Qualified Code(s): E11.9 - Type 2 diabetes mellitus without complications; Z79.4 - termite technician (current) use of insulin Category: Medical Code(s): E11.9 - Type 2 diabetes mellitus without complications (6) Morbid obesity: Status: Chronic Category: Medical Code(s): E66.01 - Morbid (severe) obesity due to excess calories Plan Patient was excepted by Dr. Mack de santiago on day shift at the end of the shift I have taken over. Patient at this time is very stable but does have a cough sli ghtly rattle to the upper airway with some lung changes to the left upper lung. Plan at this time will add Levaquin to cover both colitis and potential respiratory infection I added DuoNebs. For the nausea vomiting diarrhea presently in good control have found potential cirrhosis of the liver but a very large gallbladder with a significant amount of calculi. Will consult GI to see if this is something which needs to be evaluated and was causing the original problem of nausea and vomiting. Also with colitis have added Levaquin for treatment she has received Rocephin 1 time in the ER
[2024-11-21] MEDS: levoFLOXacin 500MG TAB 500 MG PO (20:17)
[2024-11-21] MEDS: FAMOTIDINE 20MG/2ML VIAL 20 MG IV (20:18)
[2024-11-21] MEDS: LACTATED RINGERS 1000ML 1,000 ML 125 ML IV (20:19)
[2024-11-21] MEDS: IPRATROPIUM/ALBUTEROL 3 ML NEB IH (23:29)
[2024-11-21 23:43] LABS: Lactic Acid Follow Up (RFLX 1) 1.4 mmol/L (0.7-2.1)
[2024-11-21 23:55] LABS: Troponin I 0.02 ng/ml (0.00-0.034)
[2024-11-22] VITALS: BP 116/54; PULSE 89; RESP 14; TEMP 37.2; O2SAT 90
[2024-11-22 00:28] VITALS: PULSE 77
[2024-11-22 04:00] VITALS: BP 106/85; PULSE 71; RESP 14; TEMP 36.9; O2SAT 92; BMI 51.1
--- NOTE | 2024-11-22 05:07 | PC.NURSE ---
patient is alert and oriented X4, ambulates to and from bathroom with standby assistance, no complaints of pain or nausea/vomiting, patient continues to have a non productive intermittent cough, no needs voiced at this time, family member is at bedside, call button is in reach
[2024-11-22] MEDS: IPRATROPIUM/ALBUTEROL 3 ML NEB IH ×2 (06:09→11:16)
[2024-11-22 06:11] VITALS: PULSE 76; PULSE 80
[2024-11-22 06:57] LABS: POC Glucose,Bedside 112 (70-110)
[2024-11-22 07:16] LABS: POC Glucose,Bedside 107 (70-110)
[2024-11-22 08:00] VITALS: BP 135/60; PULSE 71; RESP 18; TEMP 36.7; O2SAT 93
--- NOTE | 2024-11-22 08:31 | HMH.PHAINT1 ---
Pharmacy Intervention Comments: HOME MEDICATION LIST VERIFIED USING LIST FROM OUTPATIENT PHARMACY AND PT INTERVIEW
[2024-11-22] MEDS: AMLODIPINE 5MG TABLET 5 MG PO (08:55)
[2024-11-22] MEDS: ENOXAPARIN 40MG/0.4ML SYRINGE 40 MG SUBCUT (08:55)
[2024-11-22] MEDS: SODIUM CHLORIDE 0.9% 10ML VIAL 8 ML IV (08:56)
[2024-11-22] MEDS: BENZONATATE 100MG CAPSULE 200 MG PO (08:56)
[2024-11-22] MEDS: CITALOPRAM 40MG TABLET 40 MG PO (08:56)
[2024-11-22] MEDS: FAMOTIDINE 20MG/2ML VIAL 20 MG IV (08:56)
[2024-11-22] MEDS: buPROPion HCl SR 150MG TAB 150 MG PO (08:56)
[2024-11-22] MEDS: IRBESARTAN 150MG TAB 150 MG PO (08:57)
[2024-11-22] MEDS: ACETAMINOPHEN 325MG TAB 650 MG PO (09:03)
--- NOTE | 2024-11-22 10:31 | EXP.SURG.CON ---
History of Present Illness *Admission Date: 11/21/24 *Reason for visit:: Nausea of vomiting, colitis enlarged gallbladder with extremely large stone *History of present illness: Patient is a 69-year-old morbidly obese female with BMI greater than 50 from [place] with history of diabetes who presented to the emergency department overnight with a plethora of multiple medical complaints including right-sided shoulder pain, right hip pain, several day history of nausea, vomiting, and diarrhea along with productive cough and subjective fever and chills. Denied abdominal pain. Her main complaints were right hip pain, cough, and urinary frequency. Patient underwent thorough workup in the emergency department which included an abundance of imaging studies. This included CT scan of the abdomen and pelvis which revealed low-attenuation bowel wall thickening in the right colon and transverse colon consistent with colitis. There were also lobulated liver consistent with cirrhosis and a gallstone. She had a mild leukocytosis of 14,700. Sodium 133. Liver function tests unremarkable. Lipase normal. Surgical consultation order placed. [facility] Disclaimer: The information contained in this section may have been updated after the patient was seen, as this information can be updated by other users. Medical History HX: breast cancer Diabetes type 2 GERD (gastroesophageal reflux disease) HTN (hypertension) HLD (hyperlipidemia) Surgical History H/O bilateral mastectomy History of total right knee replacement Family History Other Breast cancer Cancer of back Heart attack Social History Smoking Status: Never smoker alcohol intake: never current occupational status: other Travel in the last 8 weeks?: None Have you lived/traveled outside US in past 30 days?: No Contact w/someone who lives/traveled outside US past 30 days?: No Exposure to someone with infectious disease in past 14 days?: No Do you have a fever (greater than 100.4 F or 38 C)?: No Have you tested positive for COVID-19?: No Exposed to someone with COVID-19 in past 14 days?: No Do you have a sore throat?: No Do you have a cough?: No Do you have any weakness?: Yes Are you experiencing any nausea/vomitting?: No Do you have any diarrhea?: No Are you experiencing any unusual bleeding?: No Do you have any muscle aches/pain?: No Do you have any abdominal pain?: No Are you experiencing loss of taste or smell?: No Review of Systems Review of Systems Review of systems:: unable to obtain *Neurologic Neurologic: Reports as per [facility] Meds Home Medications and Allergies Home Medications ?Medication ?Instructions ?Recorded ?Confirmed ?Type amlodipine 5 mg tablet 5 mg PO DAILY 11/21/24 11/21/24 History anastrozole 1 mg tablet 1 mg PO DAILY 11/21/24 11/21/24 History atorvastatin 80 mg tablet 80 mg PO HS 11/21/24 11/21/24 History benzonatate 200 mg capsule 200 mg PO TID 11/21/24 11/22/24 History bupropion HCl 150 mg 24 hr tablet, 150 mg PO DAILY 11/21/24 11/21/24 History extended release citalopram 40 mg tablet 40 mg PO DAILY 11/21/24 11/21/24 History ezetimibe 10 mg tablet 10 mg PO DAILY 11/21/24 11/21/24 History irbesartan 150 mg tablet 150 mg PO DAILY 11/21/24 11/21/24 History levocetirizine 5 mg tablet 5 mg PO DAILY 11/21/24 11/21/24 History metformin 1,000 mg tablet 1,000 mg PO BID 11/21/24 11/21/24 History montelukast 10 mg tablet 10 mg PO PM 11/21/24 11/22/24 History omega-3 acid ethyl esters 1 gram 2 g PO BID 11/21/24 11/22/24 History capsule pantoprazole 40 mg tablet,delayed 40 mg PO DAILY 11/21/24 11/21/24 History release pioglitazone 30 mg tablet 30 mg PO DAILY 11/21/24 11/21/24 History semaglutide 0.25 mg or 0.5 mg (2 1 mg SQ WEEKLY 11/21/24 11/21/24 History mg/3 mL) subcutaneous pen injector (Ozempic) New Prescriptions to Start Prescriptions: Allergies Allergy/AdvReac Type Severity Reaction Status Date / Time lisinopril AdvReac Mild Cough Verified 11/21/24 13:55 Exam (Inpt) Vital signs and Labs for Last 24 Hours: Temp Pulse Resp BP Pulse Ox O2 Del Method 98.1 F 71 18 135/60 93 L Room Air 11/22/24 08:00 11/22/24 08:00 11/22/24 08:00 11/22/24 08:00 11/22/24 08:00 11/22/24 08:43 Laboratory Results - last 24 hr 11/21/24 13:45: WBC 14.7 H, RBC 4.97, Hgb 13.4, Hct 41.5, MCV 83.5, MCH 27.0, MCHC 32.3, RDW 15.8, Plt Count 291, MPV 9.8, Neut % (Auto) 80.7 H, Lymph % (Auto) 11.5, [place] % (Auto) 5.8, Eos % (Auto) 1.2, Baso % (Auto) 0.5, Neut # (Auto) 11.8 H, Lymph # (Auto) 1.7, [place] # (Auto) 0.9, Eos # (Auto) 0.2, Baso # (Auto) 0.1 11/21/24 13:48: SARS-CoV-2 (PCR) Not detected, Influenza A Untype (PCR) Not detected, Influenza Type B (PCR) Not detected 11/21/24 13:57: Lactate 2.7 H 11/21/24 14:45: Sodium 133 L, Potassium 3.5, Chloride 102, Carbon Dioxide 25, Anion Gap 9.5, BUN 12, Creatinine 0.90, Estimated Creat Clear 42, Estimated GFR 62, Est GFR ( Amer) 75, Glucose 223 H, Calcium 9.4, Total Bilirubin 0.5, AST 26, ALT 17, Alkaline Phosphatase 95, Troponin I < 0.01, NT-Pro-B Natriuret Pep 147 H, Total Protein 6.8, Albumin 3.8, Globulin 3.0, Albumin/Globulin Ratio 1.3, Lipase 50 11/21/24 15:20: Urine Color Yellow, Urine Appearance Clear, Urine pH 5.5, Ur Specific [place] 1.025, Urine Protein 1+ A, Urine Glucose (UA) Negative, Urine Ketones Negative, Urine Blood 2+ A, Urine Nitrate Negative, Urine Bilirubin Negative, Urine Urobilinogen 0.2, Ur Leukocyte Esterase Negative, Urine RBC Occasional, Urine WBC None, Ur Squamous Epith Cells 3-5, Urine Bacteria 1+ 11/21/24 18:15: Troponin I 0.03 11/21/24 20:10: POC Glucose 107 11/21/24 23:23: Lactate 1.4, Troponin I 0.02 11/22/24 05:03: POC Glucose 112 H I & O for Labs for Last 24 Hours: Intake & Output 11/19/24 11/20/24 11/21/24 11/22/24 11:59 11:59 11:59 11:59 Intake Total 840 / 840 Output Total 275 / 275 Balance 565 / 565 Weight 278 lb Comments:: Abdomen obese, soft, nontender Results Labs 11/21/24 13:45 11/21/24 14:45 Labs: Laboratory Results - last 24 hr 11/21/24 13:45: WBC 14.7 H, RBC 4.97, Hgb 13.4, Hct 41.5, MCV 83.5, MCH 27.0, MCHC 32.3, RDW 15.8, Plt Count 291, MPV 9.8, Neut % (Auto) 80.7 H, Lymph % (Auto) 11.5, [place] % (Auto) 5.8, Eos % (Auto) 1.2, Baso % (Auto) 0.5, Neut # (Auto) 11.8 H, Lymph # (Auto) 1.7, [place] # (Auto) 0.9, Eos # (Auto) 0.2, Baso # (Auto) 0.1 11/21/24 13:48: SARS-CoV-2 (PCR) Not detected, Influenza A Untype (PCR) Not detected, Influenza Type B (PCR) Not detected 11/21/24 13:57: Lactate 2.7 H 11/21/24 14:45: Sodium 133 L, Potassium 3.5, Chloride 102, Carbon Dioxide 25, Anion Gap 9.5, BUN 12, Creatinine 0.90, Estimated Creat Clear 42, Estimated GFR 62, Est GFR ( Amer) 75, Glucose 223 H, Calcium 9.4, Total Bilirubin 0.5, AST 26, ALT 17, Alkaline Phosphatase 95, Troponin I < 0.01, NT-Pro-B Natriuret Pep 147 H, Total Protein 6.8, Albumin 3.8, Globulin 3.0, Albumin/Globulin Ratio 1.3, Lipase 50 11/21/24 15:20: Urine Color Yellow, Urine Appearance Clear, Urine pH 5.5, Ur Specific [place] 1.025, Urine Protein 1+ A, Urine Glucose (UA) Negative, Urine Ketones Negative, Urine Blood 2+ A, Urine Nitrate Negative, Urine Bilirubin Negative, Urine Urobilinogen 0.2, Ur Leukocyte Esterase Negative, Urine RBC Occasional, Urine WBC None, Ur Squamous Epith Cells 3-5, Urine Bacteria 1+ 11/21/24 18:15: Troponin I 0.03 11/21/24 20:10: POC Glucose 107 11/21/24 23:23: Lactate 1.4, Troponin I 0.02 11/22/24 05:03: POC Glucose 112 H Assessment and Plan *Assessment and plan (1) Gallstones: Status: Acute Category: Medical Code(s): K80.20 - Calculus of gallbladder without cholecystitis without obstruction Plan Patient's initial presentation, symptoms, and physical findings do not suggest any surgical etiology at this time. Gallstone likely incidental and asymptomatic.
[2024-11-22 10:49] LABS: Basophils % 0.4 % (0.1-2.0); Eosinophils # 0.2 Kmm3 (0.0-0.4); Eosinophils % 2.5 % (0.1-12.0); Hematocrit 33.1 % (37.0-47.0); Immature Granulocytes # 0.03 10^3uL; Immature Granulocytes % 0.3 %; Lymphocytes # 2.8 K/mm3 (0.7-4.5); Lymphocytes % 29.4 % (10-50); Mean Corpuscular HGB Conc 31.1 g/dL (31.8-35.4); Mean Corpuscular Hemoglobin 26.6 pg (27.0-31.2); Mean Corpuscular Volume 85.5 fl (81-99); Monocytes % 10.6 % (1.7-9.3); Neutrophils # 5.4 K/mm3 (1.8-7.8); Neutrophils % 56.8 % (37.0-80.0); Nucleated Red Blood Cells # 0 10^3/uL; Nucleated Red Blood Cells % 0 %; Platelet Count 202 K/mm3 (142-424); Red Blood Count 3.87 M/mm3 (4.20-5.40); Red Cell Distribution Width 15.8 % (11.5-17.5); White Blood Count 9.5 K/mm3 (4.8-10.8)
[2024-11-22 10:53] LABS: Albumin Level 3.3 g/dl (3.5-5.0); Chloride 104 mmol/L (98-107)
[2024-11-22 10:54] LABS: Potassium 3.3 mmoL/L (3.5-5.1); Sodium 135 mmol/L (136-145)
[2024-11-22 10:55] LABS: Hemoglobin 10.7 g/dL (12.2-16.2)
[2024-11-22 10:56] LABS: Alanine Aminotransferase 13 U/L (12-78); Alkaline Phosphatase 77 U/L (38-126); Anion Gap 6.3 mEq/L (5-15); Aspartate Amino Transferase 21 U/L (14-36); Bilirubin,Total 0.2 mg/dl (0.2-1.3); Blood Urea Nitrogen 12 mg/dl (7-17); Carbon Dioxide 28 mmol/L (22.0-30.0); Creatinine Clearance Estimated 40 mL/min (50-200); Estimated Glomerular Filt Rate 62 ml/min (>60); GFR (African American) 75 ML/MIN (>60)
[2024-11-22 10:57] LABS: Albumin/Globulin Ratio 1.3 (1.1-1.8); Globulin 2.6 g/dL (1.3-3.2); Glucose 132 mg/dl (74-100); Magnesium 1.6 mg/dl (1.6-2.3); Total Protein,Serum 5.9 g/dl (6.3-8.2)
[2024-11-22 11:17] VITALS: PULSE 78; PULSE 80
[2024-11-22 11:22] LABS: Lipase 91 U/L (23-300)
[2024-11-22 11:59] LABS: Hemoglobin A1C 7.4 % (4.0-6.0)
--- NOTE | 2024-11-22 14:50 | EXP.DC.SUM ---
General Admission date:: 11/21/24 Discharge date: 11/22/24 HPI HPI HPI: Patient is a 69-year-old morbidly obese female with BMI greater than 50 from [place] with history of diabetes who presented to the emergency department overnight with a plethora of multiple medical complaints including right-sided shoulder pain, right hip pain, several day history of nausea, vomiting, and diarrhea along with productive cough and subjective fever and chills. Denied abdominal pain. Her main complaints were right hip pain, cough, and urinary frequency. Patient underwent thorough workup in the emergency department which included an abundance of imaging studies. This included CT scan of the abdomen and pelvis which revealed low-attenuation bowel wall thickening in the right colon and transverse colon consistent with colitis. There were also lobulated liver consistent with cirrhosis and a gallstone. She had a mild leukocytosis of 14,700. Sodium 133. Liver function tests unremarkable. Lipase normal. Surgical consultation order placed. Hospital Course Hospital Course Hospital Course: 69-year-old female who presented with episode of nausea and vomiting along with hip pain and back pain. Workup in the ER concerning for gastroenteritis and colitis. Admitted for monitoring overnight. Feeling better by morning. Given her improvement, stable discharge home with further management as an outpatient. Problems addressed as follows: Nausea, vomiting, diarrhea Gastroenteritis -Presented with nausea and vomiting. States she has the symptoms occasionally. White count was elevated at 14.7, improved to 9.5 by morning. No further nausea or vomiting. Tolerating p.o. intake without difficulty. Passing gas. Diarrhea resolved. CT showed gallbladder with stones. Suspect incidental finding. Surgery evaluated. No indication for surgery at this time. May necessitate referral as an outpatient. Did have some nonspecific inflammatory changes of the bowel wall in the right colon. Consistent with colitis. As her symptoms are resolved and white count normalized, indication for antibiotics or further management Diabetes: A1c 7.4. Fairly well-controlled. Sliding scale insulin and fingersticks during admission. Resume pioglitazone, Ozempic, metformin per home regimen at discharge. Resume home meds for cholesterol, depression, hypertension,, GERD Hip pain Bilateral hip arthritis -CT of pelvis shows moderate to severe degeneration bilaterally. Will refer to orthopedics as an outpatient for evaluation and further management. History of breast cancer. History of double mastectomy. Continue anastrozole per home regimen CT of abdomen shows lobulated liver concerning for cirrhosis. Patient is asymptomatic. Recommend follow-up with GI for further evaluation and workup. Clinically appears compensated at this time. Platelets normal at 202. Total time spent on discharge 32 minutes in counseling, documentation, chart review, and direct care with patient. Exam Data for Last 24 hours Vital signs and Labs for Last 24 Hours: Temp Pulse Resp BP Pulse Ox O2 Del Method 98.1 F 78 18 135/60 93 L Room Air 11/22/24 08:00 11/22/24 11:17 11/22/24 08:00 11/22/24 08:00 11/22/24 08:00 11/22/24 08:43 Laboratory Results - last 24 hr 11/21/24 14:45: Sodium 133 L, Potassium 3.5, Chloride 102, Carbon Dioxide 25, Anion Gap 9.5, BUN 12, Creatinine 0.90, Estimated Creat Clear 42, Estimated GFR 62, Est GFR ( Amer) 75, Glucose 223 H, Calcium 9.4, Total Bilirubin 0.5, AST 26, ALT 17, Alkaline Phosphatase 95, Troponin I < 0.01, NT-Pro-B Natriuret Pep 147 H, Total Protein 6.8, Albumin 3.8, Globulin 3.0, Albumin/Globulin Ratio 1.3, Lipase 50 11/21/24 15:20: Urine Color Yellow, Urine Appearance Clear, Urine pH 5.5, Ur Specific [place] 1.025, Urine Protein 1+ A, Urine Glucose (UA) Negative, Urine Ketones Negative, Urine Blood 2+ A, Urine Nitrate Negative, Urine Bilirubin Negative, Urine Urobilinogen 0.2, Ur Leukocyte Esterase Negative, Urine RBC Occasional, Urine WBC None, Ur Squamous Epith Cells 3-5, Urine Bacteria 1+ 11/21/24 18:15: Troponin I 0.03 11/21/24 20:10: POC Glucose 107 11/21/24 23:23: Lactate 1.4, Troponin I 0.02 11/22/24 05:03: POC Glucose 112 H 11/22/24 10:40: WBC 9.5 D, RBC 3.87 L, Hgb 10.7 L D, Hct 33.1 L, MCV 85.5, MCH 26.6 L, MCHC 31.1 L, RDW 15.8, Plt Count 202 D, MPV 9.0, Neut % (Auto) 56.8, Lymph % (Auto) 29.4, [place] % (Auto) 10.6 H, Eos % (Auto) 2.5, Baso % (Auto) 0.4, Neut # (Auto) 5.4, Lymph # (Auto) 2.8, [place] # (Auto) 1.0, Eos # (Auto) 0.2, Baso # (Auto) 0.0, Sodium 135 L, Potassium 3.3 L, Chloride 104, Carbon Dioxide 28, Anion Gap 6.3, BUN 12, Creatinine 0.90, Estimated Creat Clear 40, Estimated GFR 62, Est GFR ( Amer) 75, Glucose 132 H D, Hemoglobin A1c 7.4 H, Lactate 1.0, Calcium 9.0, Magnesium 1.6, Total Bilirubin 0.2, AST 21, ALT 13, Alkaline Phosphatase 77, Total Protein 5.9 L, Albumin 3.3 L D, Globulin 2.6, Albumin/Globulin Ratio 1.3, Lipase 91 I & O for Last 24 hours: Intake & Output 11/19/24 11/20/24 11/21/24 11/22/24 23:59 23:59 23:59 23:59 Intake Total 240 / 240 600 / 600 Output Total 875 / 875 Balance 240 / 240 -275 / -275 Weight 122.47 kg 126.099 kg Microbiology Reports for the Last 24 Hours: Microbiology 11/21/24 13:57 Blood Blood Culture - Preliminary NO GROWTH AFTER 24 HOURS Constitutional Constitutional: no acute distress, morbidly obese, chronically ill appearing and cooperative *Routine HEENT Exam Head: Present normocephalic Eye: Present EOMI and PERRL ENT: Present mucous membranes moist *Routine Neck Exam Neck: Present supple; Absent lymphadenopathy *Routine Respiratory Exam Respiratory: Present CTA bilaterally; Absent rhonchi, wheezes or crackles *Routine Cardiovascular Exam Cardiovascular: Present RRR *Routine Abdominal Exam Abdominal: Present soft, normoactive bowel sounds and obese; Absent tenderness or distended *Routine Rectal Exam Patient deferred: visual exam *Routine Exam Patient deferred: external exam *Routine Extremities Exam Extremities: Absent cyanosis, clubbing or edema Comments: scar over right knee from previous replacement *Routine Skin Exam Skin: Present intact and warm; Absent rash *Routine Neurological Exam Neurological: Present alert, oriented X3 and moving all extremities; Absent altered mental status Results Data Completed and Pending Labs on day of discharge: Labs from last 24 hours 11/22/24 11/22/24 11/21/24 10:40 05:03 23:23 WBC 9.5 D RBC 3.87 L Hgb 10.7 L D Hct 33.1 L MCV 85.5 MCH 26.6 L MCHC 31.1 L RDW 15.8 Plt Count 202 D MPV 9.0 Neut % (Auto) 56.8 Lymph % (Auto) 29.4 [place] % (Auto) 10.6 H Eos % (Auto) 2.5 Baso % (Auto) 0.4 Neut # (Auto) 5.4 Lymph # (Auto) 2.8 [place] # (Auto) 1.0 Eos # (Auto) 0.2 Baso # (Auto) 0.0 Sodium 135 L Potassium 3.3 L Chloride 104 Carbon Dioxide 28 Anion Gap 6.3 BUN 12 Creatinine 0.90 Estimated Creat Clear 40 Estimated GFR 62 Est GFR ( Amer) 75 Glucose 132 H D POC Glucose 112 H Hemoglobin A1c 7.4 H Lactate 1.0 1.4 Calcium 9.0 Magnesium 1.6 Total Bilirubin 0.2 AST 21 ALT 13 Alkaline Phosphatase 77 Troponin I 0.02 NT-Pro-B Natriuret Pep Total Protein 5.9 L Albumin 3.3 L D Globulin 2.6 Albumin/Globulin Ratio 1.3 Lipase 91 Urine Color Urine Appearance Urine pH Ur Specific [place] Urine Protein Urine Glucose (UA) Urine Ketones Urine Blood Urine Nitrate Urine Bilirubin Urine Urobilinogen Ur Leukocyte Esterase Urine RBC Urine WBC Ur Squamous Epith Cells Urine Bacteria 11/21/24 11/21/24 11/21/24 20:10 18:15 15:20 WBC RBC Hgb Hct MCV MCH MCHC RDW Plt Count MPV Neut % (Auto) Lymph % (Auto) [place] % (Auto) Eos % (Auto) Baso % (Auto) Neut # (Auto) Lymph # (Auto) [place] # (Auto) Eos # (Auto) Baso # (Auto) Sodium Potassium Chloride Carbon Dioxide Anion Gap BUN Creatinine Estimated Creat Clear Estimated GFR Est GFR ( Amer) Glucose POC Glucose 107 Hemoglobin A1c Lactate Calcium Magnesium Total Bilirubin AST ALT Alkaline Phosphatase Troponin I 0.03 NT-Pro-B Natriuret Pep Total Protein Albumin Globulin Albumin/Globulin Ratio Lipase Urine Color Yellow Urine Appearance Clear Urine pH 5.5 Ur Specific [place] 1.025 Urine Protein 1+ A Urine Glucose (UA) Negative Urine Ketones Negative Urine Blood 2+ A Urine Nitrate Negative Urine Bilirubin Negative Urine Urobilinogen 0.2 Ur Leukocyte Esterase Negative Urine RBC Occasional Urine WBC None Ur Squamous Epith Cells 3-5 Urine Bacteria 1+ 11/21/24 14:45 WBC RBC Hgb Hct MCV MCH MCHC RDW Plt Count MPV Neut % (Auto) Lymph % (Auto) [place] % (Auto) Eos % (Auto) Baso % (Auto) Neut # (Auto) Lymph # (Auto) [place] # (Auto) Eos # (Auto) Baso # (Auto) Sodium 133 L Potassium 3.5 Chloride 102 Carbon Dioxide 25 Anion Gap 9.5 BUN 12 Creatinine 0.90 Estimated Creat Clear 42 Estimated GFR 62 Est GFR ( Amer) 75 Glucose 223 H POC Glucose Hemoglobin A1c Lactate Calcium 9.4 Magnesium Total Bilirubin 0.5 AST 26 ALT 17 Alkaline Phosphatase 95 Troponin I < 0.01 NT-Pro-B Natriuret Pep 147 H Total Protein 6.8 Albumin 3.8 Globulin 3.0 Albumin/Globulin Ratio 1.3 Lipase 50 Urine Color Urine Appearance Urine pH Ur Specific [place] Urine Protein Urine Glucose (UA) Urine Ketones Urine Blood Urine Nitrate Urine Bilirubin Urine Urobilinogen Ur Leukocyte Esterase Urine RBC Urine WBC Ur Squamous Epith Cells Urine Bacteria Preliminary micro results at discharge 11/21/24 13:57 Blood Culture - Preliminary Blood NO GROWTH AFTER 24 HOURS DS: Diagnosis Discharge Diagnosis (1) Nausea vomiting and diarrhea: Status: Resolved Code(s): R11.2 - Nausea with vomiting, unspecified; R19.7 - Diarrhea, unspecified (2) Gallstones: Status: Acute Code(s): K80.20 - Calculus of gallbladder without cholecystitis without obstruction (3) Morbid obesity: Status: Chronic Code(s): E66.01 - Morbid (severe) obesity due to excess calories (4) Diabetes mellitus: Status: Acute Code(s): E11.9 - Type 2 diabetes mellitus without complications Qualifiers: Diabetes mellitus type: type 2 Diabetes mellitus buttermaker continuous churn insulin use: with buttermaker continuous churn use Diabetes mellitus complication status: without complication Qualified Code(s): E11.9 - Type 2 diabetes mellitus without complications; Z79.4 - detention (current) use of insulin (5) Colitis: Status: Acute Code(s): K52.9 - Noninfective gastroenteritis and colitis, unspecified Meds Home Medications and Allergies Home Medications ?Medication ?Instructions ?Recorded ?Confirmed ?Type amlodipine 5 mg tablet 5 mg PO DAILY 11/21/24 11/21/24 History anastrozole 1 mg tablet 1 mg PO DAILY 11/21/24 11/21/24 History atorvastatin 80 mg tablet 80 mg PO HS 11/21/24 11/21/24 History benzonatate 200 mg capsule 200 mg PO TID 11/21/24 11/22/24 History bupropion HCl 150 mg 24 hr tablet, 150 mg PO DAILY 11/21/24 11/21/24 History extended release citalopram 40 mg tablet 40 mg PO DAILY 11/21/24 11/21/24 History ezetimibe 10 mg tablet 10 mg PO DAILY 11/21/24 11/21/24 History irbesartan 150 mg tablet 150 mg PO DAILY 11/21/24 11/21/24 History levocetirizine 5 mg tablet 5 mg PO DAILY 11/21/24 11/21/24 History metformin 1,000 mg tablet 1,000 mg PO BID 11/21/24 11/21/24 History montelukast 10 mg tablet 10 mg PO PM 11/21/24 11/22/24 History omega-3 acid ethyl esters 1 gram 2 g PO BID 11/21/24 11/22/24 History capsule pantoprazole 40 mg tablet,delayed 40 mg PO DAILY 11/21/24 11/21/24 History release pioglitazone 30 mg tablet 30 mg PO DAILY 11/21/24 11/21/24 History semaglutide 0.25 mg or 0.5 mg (2 1 mg SQ WEEKLY 11/21/24 11/21/24 History mg/3 mL) subcutaneous pen injector (Ozempic) New Prescriptions to Start Prescriptions: Allergies Allergy/AdvReac Type Severity Reaction Status Date / Time lisinopril AdvReac Mild Cough Verified 11/21/24 13:55 Discharge Plan Disposition Patient Disposition: Home, Self-Care Condition: Good Follow up Plan Follow up with: Miriam Zuniga APRN [Primary Care Provider, Medical] - 11/29/24 10:30 am Reji Manrique II, MD [Staff Physician, Gastroenterology] - Enter time for follow up Jef Fried DO [Staff Physician, Orthopedics] - Enter time for follow up Referral Note: arthritis of hips, possible steroid injections please call fro appointment Prescriptions/Medication Reconciliation: Continued anastrozole 1 mg tablet 1 mg PO DAILY Patient Comments: TAKE ONE TABLET BY MOUTH EVERY DAY atorvastatin 80 mg tablet 80 mg PO HS Patient Comments: TAKE ONE TABLET BY MOUTH EVERY DAY for cholesterol citalopram 40 mg tablet 40 mg PO DAILY Patient Comments: TAKE ONE TABLET BY MOUTH EVERY DAY DIRECTED benzonatate 200 mg capsule 200 mg PO TID Patient Comments: TAKE ONE CAPSULE BY MOUTH THREE TIMES DAILY amlodipine 5 mg tablet 5 mg PO DAILY Patient Comments: TAKE ONE TABLET BY MOUTH EVERY DAY DIRECTED FOR BLOOD PRESSURE pantoprazole 40 mg tablet,delayed release (DR/EC) 40 mg PO DAILY Patient Comments: TAKE ONE TABLET BY MOUTH EVERY DAY metformin 1,000 mg tablet 1,000 mg PO BID Patient Comments: TAKE ONE TABLET BY MOUTH TWICE DAILY montelukast 10 mg tablet 10 mg PO PM Patient Comments: TAKE ONE TABLET BY MOUTH EVERY DAY irbesartan 150 mg tablet 150 mg PO DAILY Patient Comments: TAKE ONE TABLET BY MOUTH EVERY DAY pioglitazone 30 mg tablet 30 mg PO DAILY Patient Comments: TAKE ONE TABLET BY MOUTH EVERY DAY DIRECTED ezetimibe 10 mg tablet 10 mg PO DAILY Patient Comments: TAKE ONE TABLET BY MOUTH EVERY DAY for cholesterol bupropion HCl 150 mg tablet extended release 24 hr 150 mg PO DAILY Patient Comments: TAKE ONE TABLET BY MOUTH EVERY DAY DIRECTED omega-3 acid ethyl esters 1 gram capsule 2 g PO BID Patient Comments: TAKE TWO CAPSULES BY MOUTH TWICE DAILY for triglycerides levocetirizine 5 mg tablet 5 mg PO DAILY Patient Comments: TAKE ONE TABLET BY MOUTH ONCE DAILY Ozempic 0.25 mg or 0.5 mg (2 mg/3 mL) pen injector 1 mg SQ WEEKLY Patient Comments: Inject 0.5 mg every week by subcutaneous route. Problem Reconciliation Problems Reviewed?: Yes Patient Discharge Instructions ACTIVITY: Continue current activity DIET: continue same diet Patient Instructions: DI for Sepsis -- Adult, DI for Colitis Print Language: Kinyarwanda Providers Primary Care Provider: Miriam Zuniga Admit Provider: Dominic Jewell Attending Provider: Dominic Jewell
--- NOTE | 2024-11-24 10:49 | SW/DCPLANNER ---
Patient's number that she has on file is the wrong number. Princess LOPEZ [employer]
== END 2024-11-22 18:05 | disposition home or self-care (01) ==
LOC: ER 17:05 → 2ND 17:08
PROVIDERS: Nurse Practitioner Family; Physician Assistant; Admitting Provider Student in an Organized Health Care Education/Training Program; Emergency Provider Emergency Medicine; PCP Nurse Practitioner Family; Visit Provider Student in an Organized Health Care Education/Training Program
DX: K52.9 Noninfective gastroenteritis and colitis, unspecified (principal); K80.20 Calculus of gallbladder without cholecystitis without obstruction; J40 Bronchitis, not specified as acute or chronic; E66.01 Morbid (severe) obesity due to excess calories; Z68.43 Body mass index [BMI] 50.0-59.9, adult; E11.9 Type 2 diabetes mellitus without complications; K21.9 Gastro-esophageal reflux disease without esophagitis; M16.0 Bilateral primary osteoarthritis of hip; I10 Essential (primary) hypertension; E78.5 Hyperlipidemia, unspecified; E87.1 Hypo-osmolality and hyponatremia; Z85.3 Personal history of malignant neoplasm of breast; Z96.651 Presence of right artificial knee joint; Z79.84 Long term (current) use of oral hypoglycemic drugs; Z79.811 Long term (current) use of aromatase inhibitors; Z79.85 Long-term (current) use of injectable non-insulin antidiabetic drugs; Z79.899 Other long term (current) drug therapy
CPT/HCPCS: 96374; 96375; 36415; 71045; 72170; 73030; 74177; 80053; 81001; 82962; 83036; 83605; 83690; 83735; 83880; 84484; 85025; 87040; 87636; 93005; 94640; G0378; J0696; J1650; J2405; J7030; J7120; Q9967